=== PATIENT | female | born 2000 | race Hispanic/Latino ===

== ENCOUNTER 2018-01-21 01:39 | Outpatient (CLI) | payer OTHER ==
[2018-01-21 01:56] VITALS: BP 110/75
== END 2018-01-21 02:36 | disposition home or self-care (01) ==
LOC: TRG 01:39
PROVIDERS: ATTEND Obstetrics & Gynecology
DX: O47.03 False labor before 37 completed weeks of gestation, third trimester (principal); Z3A.29 29 weeks gestation of pregnancy
CPT/HCPCS: 59025

== ENCOUNTER 2018-02-07 19:40 | Outpatient (CLI) | payer OTHER ==
[2018-02-07 20:55] LABS: Bilirubin,Urine NEG (Negative); Blood,Urine SM (Negative); Color,Urine Yellow (Yellow); Mucus,Urine FEW /HPF; Protein,Urine <15 mg/dL mg/dL (Negative); Urobilinogen,Urine < 2.0 mg/dL (<2.0)
[2018-02-07] MEDS ORDERED: LACTATED RINGERS 1,000 ML IV ONE (22:08)
[2018-02-07] MEDS ORDERED: TYLENOL PO ONE (22:51)
== END 2018-02-08 00:04 | disposition home or self-care (01) ==
LOC: TRG 19:40
PROVIDERS: ATTEND Obstetrics & Gynecology
DX: O47.03 False labor before 37 completed weeks of gestation, third trimester (principal); Z3A.32 32 weeks gestation of pregnancy
CPT/HCPCS: 59025; 81001; 96360; J7120

== ENCOUNTER 2018-02-14 10:40 | Outpatient (CLI) | payer OTHER ==
[2018-02-14 10:53] VITALS: BP 132/79
[2018-02-14] MEDS ORDERED: LACTATED RINGERS 2,000 ML ONE (10:58)
[2018-02-14] MEDS ORDERED: LACTATED RINGERS 500 ML IV ONE (11:08)
[2018-02-14 11:43] LABS: Basophils % (Auto) 0.4 % (0.0-1.8); Eosinophils % (Auto) 0.5 % (0.0-4.3); Hematocrit 25.7 % (30.3-42.9); Hemoglobin 8.3 gm/dl (10.1-14.3); Lymphocytes # (Auto) 2.4 K/mm3 (1.2-5.4); Lymphocytes % (Auto) 39.4 % (13.4-35.0); Mean Corpuscular HGB Conc 32 % (30-34); Mean Corpuscular Volume 79 fl (79-97); Monocytes # (Auto) 0.4 K/mm3 (0.0-0.8); Monocytes % (Auto) 7.3 % (0.0-7.3); Platelet Count 208 K/mm3 (140-440); Red Blood Count 3.27 M/mm3 (3.65-5.03); Red Cell Distribution Width 15.1 % (13.2-15.2)
[2018-02-14 11:46] LABS: Mean Corpuscular Hemoglobin 25 pg (28-32)
[2018-02-14 12:06] LABS: Alanine Aminotransferase 43 units/L (7-56); Albumin 3.3 g/dL (3.9-5); BUN/Creatinine Ratio 12; Blood Urea Nitrogen 6 mg/dL (7-17); Calcium 8.2 mg/dL (8.4-10.2); Hemolysis Index 2
--- NOTE | 2018-02-14 12:47 | Ultrasound Report ---
FINAL REPORT EXAM: US OB BPP WO NON-STRESS HISTORY: small for dates TECHNIQUE: Ultrasound examination of the gravid uterus for biophysical profile evaluation of the fetus PRIORS: Ob ultrasound 02/14/2018 FINDINGS: There is a single viable intrauterine with documented cardiac activity. The amniotic fluid volume is normal. heart rate: 129 bpm Amniotic fluid maximum vertical pocket: 5.6 cm position: Cephalic Placental position: Anterior and right lateral, grade 1 Evaluation for biophysical profile yields the following score as reported by technologist from real-time exam: respiratory motion (minimum one episode): 2 Gross body movement (minimum 3 movements): 2 tone (minimum one flexion and extension): 2 Amniotic fluid volume (at least 2 cm pocket in vertical diameter): 2 IMPRESSION: Single viable intrauterine with 8/8 biophysical profile score during the sonographic evaluation
--- NOTE | 2018-02-14 12:55 | Ultrasound Report ---
FINAL REPORT EXAM: US OB FOLLOW UP HISTORY: ptl TECHNIQUE: Ultrasound evaluation of the gravid uterus PRIORS: Biophysical profile 02/14/2018 FINDINGS: There is a single viable intrauterine with documented cardiac activity. Multiple ultrasound measurements are made to determine a composite gestational age. Nonspecific low FL/BPD of 70.7, lower limit of normal 71.6. All other ratios are within normal limits. There is no evidence of placenta previa or abruption. The maternal cervix is obscured by head. The quantity of visualized amniotic fluid appears grossly normal. No sonographic abnormality in the limited visualized portion of the anatomy. Heart rate: 129 beats per minute position: Cephalic Placental position: Anterior and right lateral, grade 1 Amniotic fluid index: 19.1cm Estimated weight: 2704 g Growth percentile by estimated weight: 97 Growth percentile by HC/AC ratio: 51 Ultrasound estimated gestational age: 36 weeks 0 days Ultrasound estimated delivery date: 03/14/2018 LMP estimated gestational age: 33 weeks 1 day LMP estimated delivery date: 04/03/2018 IMPRESSION: Single viable intrauterine with the above parameters Nonspecific low FL/BPD ratio Growth percentile between 51 and 97 %
== END 2018-02-14 13:35 | disposition home or self-care (01) ==
LOC: TRG 10:40
PROVIDERS: ATTEND Obstetrics & Gynecology
DX: O47.03 False labor before 37 completed weeks of gestation, third trimester (principal); Z3A.36 36 weeks gestation of pregnancy
CPT/HCPCS: 36415; 59025; 76816; 76819; 80053; 85025; 96360; 96361; J7120

== ENCOUNTER 2018-02-20 15:30 | Outpatient (CLI) | payer OTHER ==
[2018-02-20 15:48] VITALS: BP 127/88
[2018-02-20] MEDS ORDERED: BENADRYL PO ONE (16:45)
== END 2018-02-20 17:45 | disposition home or self-care (01) ==
LOC: TRG 15:30
PROVIDERS: ATTEND Obstetrics & Gynecology
DX: O47.03 False labor before 37 completed weeks of gestation, third trimester (principal); Z3A.34 34 weeks gestation of pregnancy
CPT/HCPCS: 59025

== ENCOUNTER 2018-02-26 16:13 | Inpatient (IN) | payer BC, OTHER ==
[2018-02-26] MEDS ORDERED: LACTATED RINGERS 1,000 ML IV ONE ×2 (17:13→18:37)
[2018-02-26 18:00] LABS: Bilirubin,Urine SM (Negative); Blood,Urine LG (Negative); Color,Urine Amber (Yellow); Mucus,Urine 2+ /HPF
[2018-02-26 18:01] LABS: RBC,Urine > 182.0 /HPF (0.0-6.0)
[2018-02-26 18:03] LABS: Ictotest,Urine Negative (Negative)
--- NOTE | 2018-02-26 18:40 | History and Physical Report ---
History of Present Illness Date of examination: 02/26/18 Date of admission: 02/26/18 Chief complaint: diarrhea, abdominal pain History of present illness: Pt presents c/o intially having constipation stating she took meds and there after had diarrhea and abdominal cramping. She was noted to have findings on cath ua c/w UTI as well as regular uterine contractions with cx of 1cm as per triage nurse. She denies any vaginal bleeding, LOF or ROM and reports good movement. No fevers no chills. Pt has been treated in triage previously for dehydration. Pt admitted for treatment of uti vs pyelo, iv hydration,and monitoring for contractions vs labor, and steriod treatment. Plan of care d/w pt and family. All questions were addressed and answered. 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 Infection History Hx of STD: none HIV Risk Eval: low risk Hepatitis B Risk Eval: low risk Personal hx. of genital herpes: no Partner hx. of genital herpes: no Rash, Viral, or Febrile illness since last LMP? no Varicella/Chicken Pox Status: Unknown TB Risk: no Genetic History Congenital Heart Defect: Mom: no Dad: no Osvaldo Disease: Mom: no Dad: no Thalassemia Mom: no Dad: no Neural Tube Defect Mom: no Dad: no Down's Syndrome Mom: no Dad: no Steve-Sachs Mom: no Dad: no Sickle Cell Disease/Trait Mom: no Dad: no Hemophilia Mom: no Dad: no Muscular Dystrophy Mom: no Dad: no Cystic Fibrosis Mom: no Dad: no Pierre Chorea Mom: no Dad: no Mental Retardation Mom: no Dad: no Fragile X Mom: no Dad: no Other Genetic/Chromosomal Disorder Mom: no Dad: no Child w/other defect Mom: no Dad: no Enviromental Exposures Xray Exposure: no Medication, drug, or alcohol use since LMP: no Chemical/Other Exposure: no Exposure to Cat Liter: no Hx of Parvovirus (Fifth Disease): no Occupational Exposure to Children: none Active Medications (reviewed today): VITAMINS TABS ( VIT-FE FUMARATE-FA TABS) 1 tab po qday Current Allergies (reviewed today): No known allergies Laboratory Results Urine HCG: positive Review of Systems General Denies fever, chills, sweats, anorexia, fatigue, weakness, malaise, weight loss and sleep disorder. Denies nausea, vomiting, headache, swelling of legs, abdominal pain, vaginal discharge, vaginal bleeding and contractions. Denies vaginal discharge, incontinence, dysuria, hematuria, urinary frequency, amenorrhea, menorrhagia, abnormal vaginal bleeding, pelvic pain, genital sores, decreased libido, painful periods, painful sex, urinary urgency, hot flashes, vaginal dryness, vaginal itching and vaginal odor. CV Denies chest pains, palpitations, syncope, dyspnea on exertion, orthopnea, PND and peripheral edema. Resp Denies cough, dyspnea at rest, excessive sputum, hemoptysis, wheezing and pleurisy. GI Denies nausea, vomiting, diarrhea, constipation, change in bowel habits, abdominal pain, melena, hematochezia, jaundice, gas/bloating, indigestion/ heartburn, dysphagia and odynophagia. Endo Denies cold intolerance, heat intolerance, polydipsia, polyphagia, polyuria and unusual weight change. Breast Denies left breast lump, right breast lump, nipple discharge, bloody discharge from nipple, breast pain, abnormal mammogram and breast enlargement. MS Denies back pain, joint pain, joint swelling, muscle cramps, muscle weakness, stiffness, arthritis, sciatica, restless legs, leg pain at night and leg pain with exertion. Derm Denies rash, itching, dryness and suspicious lesions. Neuro Denies paralysis, paresthesias, headache, seizures, tremors, vertigo, transient blindness, frequent falls, frequent headaches and difficulty walking. Psych Denies depression, anxiety, irritability and mood swings. Eyes Denies blurring, diplopia, irritation, discharge, vision loss, eye pain and photophobia. ENT Denies earache, ear discharge, tinnitus, decreased hearing, nasal congestion, nosebleeds, sore throat and hoarseness. Allergy Denies urticaria, allergic rash, hay fever and recurrent infections. Heme Denies abnormal bruising, bleeding and enlarged lymph nodes. Family History Summary: Mother (biol.) - Has Family History of Hypertension - Entered On: 11/30/2017 Father (biol.) - Has Family History of Hypertension - Entered On: 11/30/2017 Father (biol.) - Has Family History of Diabetes - Entered On: 11/30/2017 General Comments - FH: MGM COPD Social History: Patient is single Smoking History: Patient is a former smoker. Risk Factors: Smoked Tobacco Use: Former smoker Cigarettes: Yes Drug use: yes Substance: marijuana Comments: high school HIV high-risk behavior: low risk Caffeine use: 0 drinks per day Alcohol use: yes Comments: stopped 2 months ago Seatbelt use: preg-school guidance counselor % Past History Past Medical History: no pertinent history Past Surgical History: no surgical history STOCK OR DELIVERY CLERK History: other (negative) Family/Genetic History: other (COPD-GM) Social history: no significant social history, single - Obstetrical History Expected Date of Delivery: 04/03/18 Actual Gestation: 34 Week(s) 6 Day(s) : 1 Medications and Allergies Allergies Allergy/AdvReac Type Severity Reaction Status Date / Time No Known Allergies Allergy Verified 02/26/18 17:12 Home Medications Medication Instructions Recorded Confirmed Last Taken Type Docusate Sodium [Colace] 100 mg PO BID PRN #60 capsule 02/14/18 Unknown Rx Ferrous Sulfate [Feosol 325 MG tab] 325 mg PO BID #60 tablet 02/14/18 Unknown Rx Review of Systems All systems: negative - Vital Signs Vital signs: Vital Signs Pulse BP 111 H 129/83 02/26/18 16:43 02/26/18 16:43 Temp Pulse Resp BP Pulse Ox 98.4 F 97 H 18 130/85 98 02/26/18 17:04 02/26/18 18:32 02/26/18 17:04 02/26/18 18:17 02/26/18 18:32 - Physical Exam Cardiovascular: Normal S1, Normal S2 Lungs: Positive: Clear to auscultation, Normal air movement Abdomen: Positive: normal appearance, soft, normal bowel sounds, other (+ left CVA tenderness). Negative: distention, tenderness, guarding Genitourinary (Female): Positive: normal external genitalia, normal perenium Vagina: Positive: normal moisture Extremities: Positive: normal. Negative: tenderness, edema - Obstetrical FHR: category 1 Results Abnormal lab results 02/26/18 Range/Units 17:40 Urine WBC (Auto) 7.0 H (0.0-6.0) /HPF All other labs normal. Assessment and Plan - Patient Problems (1) 34 weeks gestation of Current Visit: Yes Status: Acute (2) UTI (urinary tract infection) Current Visit: Yes Status: Acute Qualifiers: Urinary tract infection type: acute cystitis Plan to address problem: -VS PYEOLO- IV ANTIBX FOR 24 TO 48HRS. PYELO LIKELY WITH THE CVA TENDERNESS -OBSERVATION -IV HYDRATION (3) uterine contractions in third trimester, antepartum Current Visit: Yes Status: Acute Plan to address problem: -PT IS 1CM SO WILL MONITOR AT THIS TIME. NO CERVICAL CHANGE SO NO MAGNESIUM AT THIS TIME. - STEROID -CLOSE OBSERVATIONS. CONTRACTIONS LIKELY DUE TO UTI VS PYELO
[2018-02-26] MEDS ORDERED: COLACE PO PRN (18:41)
[2018-02-26] MEDS ORDERED: TYLENOL PO PRN (18:41)
[2018-02-26] MEDS ORDERED: SUBLIMAZE IV ONE (18:42)
[2018-02-26] MEDS ORDERED: ROCEPHIN IM SCH (19:00)
[2018-02-26] MEDS: CELESTONE SOLUSPAN IM SCH (19:03)
[2018-02-26] MEDS ORDERED: XYLOCAINE 1% MPF 5 mL INFILTRATI ONE (20:00)
[2018-02-26 20:12] LABS: Alanine Aminotransferase 267 units/L (7-56); Albumin 3.3 g/dL (3.9-5); BUN/Creatinine Ratio 11; Blood Urea Nitrogen 9 mg/dL (7-17); Calcium 9.1 mg/dL (8.4-10.2); Hemolysis Index 39
[2018-02-26 20:28] LABS: Basophils % (Auto) 0.1 % (0.0-1.8); Hematocrit 26.7 % (30.3-42.9); Hemoglobin 8.4 gm/dl (10.1-14.3); Lymphocytes # (Auto) 1.2 K/mm3 (1.2-5.4); Lymphocytes % (Auto) 8.8 % (13.4-35.0); Mean Corpuscular HGB Conc 31 % (30-34); Mean Corpuscular Volume 78 fl (79-97); Monocytes # (Auto) 0.8 K/mm3 (0.0-0.8); Monocytes % (Auto) 5.7 % (0.0-7.3); Platelet Count 194 K/mm3 (140-440); Red Blood Count 3.44 M/mm3 (3.65-5.03); Red Cell Distribution Width 16.1 % (13.2-15.2)
[2018-02-26 20:31] LABS: Mean Corpuscular Hemoglobin 24 pg (28-32)
[2018-02-26] MEDS: LACTATED RINGERS 1,000 ML IV SCH (20:41)
[2018-02-26] MEDS ORDERED: NACL 0.9% 100 ML ONE (20:50)
[2018-02-26] MEDS ORDERED: ROCEPHIN/NS 1 GM/50 ML 1 GM/50 ML BAG IV SCH (21:00)
[2018-02-26] MEDS: PEPCID IV SCH (21:04)
[2018-02-26] MEDS: STADOL IV PRN (21:05)
--- NOTE | 2018-02-26 21:06 | Event Note ---
Date: 02/26/18 Pt with elevated liver enzymes. BPs are normal at this time. Will obtain 24hr urine collection and consult amfm in the am to see pt as she is stable at this time. ? cholestaiss but pt has no c/o of purities just diarrhea after taking the colace. She c/o reflux but no n/v and has normal appetite. Will cont to closely monitor and repeat LFTS in the am. Will also obtain an amylase and lipase at this time.
[2018-02-26] MEDS: cefTRIAXone 1 GM in NACL 0.9% 20 ML IV SCH (22:10)
[2018-02-26 22:13] LABS: Lipase 15 units/L (13-60)
--- NOTE | 2018-02-27 07:44 | Progress Note ---
Assessment and Plan - Patient Problems (1) 34 weeks gestation of Current Visit: Yes Status: Acute (2) Transaminitis Current Visit: Yes Status: Acute Plan to address problem: ? atypical presentation for preeclampsia Repeat CMP Continue 24h urine, will place vann to accurately collect urine (3) uterine contractions in third trimester, antepartum Current Visit: Yes Status: Acute Plan to address problem: Irregular contractions Complete steroids will hold mgSO 4 for now since on evidence of imminent delivery (4) UTI (urinary tract infection) Current Visit: Yes Status: Acute Qualifiers: Urinary tract infection type: acute cystitis Plan to address problem: Continue Rocephin Urine culture pending Subjective - Subjective Date of service: 02/27/18 Principal diagnosis: IUP@34 weeks, transamnitis, pyleonephritis Interval history: Ambulating in room, feel better wants to know when she can eat Patient reports: vaginal bleeding, movement normal, contractions, no new complaints Objective - Vital Signs Vital Signs: Vital Signs - 12hr 02/26/18 02/26/18 02/26/18 20:02 20:31 21:01 Temperature Pulse Rate 88 86 97 H Respiratory Rate Blood Pressure 133/83 137/86 127/84 Blood Pressure [Left] O2 Sat by Pulse Oximetry 02/26/18 02/26/18 02/26/18 21:05 21:31 22:28 Temperature Pulse Rate 107 H 111 H Respiratory 20 Rate Blood Pressure 112/75 116/80 Blood Pressure [Left] O2 Sat by Pulse Oximetry 02/26/18 02/26/18 02/26/18 22:31 23:02 23:33 Temperature Pulse Rate 110 H 115 H 99 H Respiratory Rate Blood Pressure 119/71 120/79 117/71 Blood Pressure [Left] O2 Sat by Pulse Oximetry 02/27/18 02/27/18 02/27/18 00:01 00:31 00:41 Temperature 98.4 F Pulse Rate 98 H 114 H 101 H Respiratory 20 Rate Blood Pressure 122/77 113/69 117/73 Blood Pressure 117/73 [Left] O2 Sat by Pulse Oximetry 02/27/18 02/27/18 02/27/18 01:01 01:31 02:01 Temperature Pulse Rate 98 H 94 H 102 H Respiratory Rate Blood Pressure 128/74 116/75 119/74 Blood Pressure [Left] O2 Sat by Pulse Oximetry 02/27/18 02/27/18 02/27/18 02:31 03:01 03:32 Temperature Pulse Rate 110 H 99 H 113 H Respiratory Rate Blood Pressure 126/82 141/80 130/81 Blood Pressure [Left] O2 Sat by Pulse Oximetry 02/27/18 02/27/18 02/27/18 04:01 04:30 04:32 Temperature 99.5 F Pulse Rate 90 121 H 106 H Respiratory 20 Rate Blood Pressure 122/82 129/78 Blood Pressure 120/74 [Left] O2 Sat by Pulse Oximetry 02/27/18 02/27/18 02/27/18 04:49 05:01 05:31 Temperature Pulse Rate 121 H 105 H 122 H Respiratory Rate Blood Pressure 120/74 118/71 122/59 Blood Pressure [Left] O2 Sat by Pulse Oximetry 02/27/18 02/27/18 02/27/18 06:01 06:31 07:01 Temperature Pulse Rate 118 H 104 H 91 H Respiratory Rate Blood Pressure 117/66 120/72 117/72 Blood Pressure [Left] O2 Sat by Pulse Oximetry 02/27/18 02/27/18 02/27/18 07:18 07:23 07:25 Temperature 98.2 F Pulse Rate 96 H 106 H 96 H Respiratory 18 Rate Blood Pressure 125/78 Blood Pressure 125/78 [Left] O2 Sat by Pulse 98 99 Oximetry 02/27/18 02/27/18 02/27/18 07:28 07:31 07:33 Temperature Pulse Rate 101 H 105 H 103 H Respiratory Rate Blood Pressure 126/80 Blood Pressure [Left] O2 Sat by Pulse 99 98 Oximetry - Exam Breasts: deferred Cardiovascular: Regular rate Lungs: Clear to auscultation Abdomen: Present: normal appearance, soft. Absent: tenderness Uterus: Absent: tenderness FHR: category 1 Uterine Contraction Monitor Mode: External Uterine Contraction Pattern: Irregular Extremities: edema (1+) Deep Tendon Reflex Grade: Normal but brisk +3 - Labs Labs: Abnormal Labs 02/26/18 02/26/18 02/26/18 17:40 19:24 20:15 WBC 13.9 H RBC 3.44 L Hgb 8.4 L Hct 26.7 L MCV 78 L MCH 24 L RDW 16.1 H Lymph % (Auto) 8.8 L Seg Neutrophils % 85.4 H Seg Neutrophils # 11.9 H Sodium 132 L Chloride 97.1 L Carbon Dioxide 15 L AST 355 H ALT 267 H Alkaline Phosphatase 192 H Albumin 3.3 L Amylase Urine WBC (Auto) 7.0 H Acetaminophen 02/26/18 02/26/18 21:29 21:45 WBC RBC Hgb Hct MCV MCH RDW Lymph % (Auto) Seg Neutrophils % Seg Neutrophils # Sodium Chloride Carbon Dioxide AST ALT Alkaline Phosphatase Albumin Amylase 23 L Urine WBC (Auto) Acetaminophen < 5.0 L Laboratory Results - last 24 hr 02/26/18 02/26/18 02/26/18 17:40 19:24 20:15 WBC 13.9 H RBC 3.44 L Hgb 8.4 L Hct 26.7 L MCV 78 L MCH 24 L MCHC 31 RDW 16.1 H Plt Count 194 Lymph % (Auto) 8.8 L Blount % (Auto) 5.7 Eos % (Auto) 0.0 Baso % (Auto) 0.1 Lymph # 1.2 Blount # 0.8 Eos # 0.0 Baso # 0.0 Seg Neutrophils % 85.4 H Seg Neutrophils # 11.9 H Sodium 132 L Potassium 4.4 Chloride 97.1 L Carbon Dioxide 15 L Anion Gap 24 BUN 9 Creatinine 0.8 Estimated GFR > 60 BUN/Creatinine Ratio 11 Glucose 71 Calcium 9.1 Total Bilirubin 0.80 AST 355 H ALT 267 H Alkaline Phosphatase 192 H Total Protein 6.5 Albumin 3.3 L Albumin/Globulin Ratio 1.0 Amylase Lipase Urine Color Smiley Urine Turbidity Clear Urine pH 5.0 Ur Specific [place] 1.023 Urine Protein 100 mg/dl Urine Glucose (UA) Neg Urine Ketones 20 Urine Blood Lg Urine Nitrite Neg Urine Bilirubin Sm Urine Ictotest Negative Urine Urobilinogen 4.0 Ur Leukocyte Esterase Neg Urine WBC (Auto) 7.0 H Urine RBC (Auto) > 182.0 U Epithel Cells (Auto) 2.0 Urine Mucus 2+ Acetaminophen 02/26/18 02/26/18 21:29 21:45 WBC RBC Hgb Hct MCV MCH MCHC RDW Plt Count Lymph % (Auto) Blount % (Auto) Eos % (Auto) Baso % (Auto) Lymph # Blount # Eos # Baso # Seg Neutrophils % Seg Neutrophils # Sodium Potassium Chloride Carbon Dioxide Anion Gap BUN Creatinine Estimated GFR BUN/Creatinine Ratio Glucose Calcium Total Bilirubin AST ALT Alkaline Phosphatase Total Protein Albumin Albumin/Globulin Ratio Amylase 23 L Lipase 15 Urine Color Urine Turbidity Urine pH Ur Specific [place] Urine Protein Urine Glucose (UA) Urine Ketones Urine Blood Urine Nitrite Urine Bilirubin Urine Ictotest Urine Urobilinogen Ur Leukocyte Esterase Urine WBC (Auto) Urine RBC (Auto) U Epithel Cells (Auto) Urine Mucus Acetaminophen < 5.0 L
[2018-02-27] MEDS: STADOL IV PRN ×2 (08:10→12:19)
[2018-02-27] MEDS: ZOFRAN IV PRN (08:13)
[2018-02-27] MEDS: PEPCID IV SCH (09:43)
[2018-02-27] MEDS: PRENATAL VITAMIN PO SCH (09:43)
[2018-02-27 10:48] LABS: Alanine Aminotransferase 239 units/L (7-56); Albumin 2.9 g/dL (3.9-5); BUN/Creatinine Ratio 12; Blood Urea Nitrogen 11 mg/dL (7-17); Calcium 8.3 mg/dL (8.4-10.2); Hemolysis Index 7
[2018-02-27 11:39] LABS: Hepatitis A Antibody IgM Non-Reactive (NonReactive); Hepatitis B Core IgM Non-Reactive (NonReactive); Hepatitis B Surface Antigen Non-Reactive (Negative); Hepatitis C Virus Antibody Non-Reactive (NonReactive)
[2018-02-27] MEDS: LACTATED RINGERS 1,000 ML IV SCH (12:26)
[2018-02-27 18:10] LABS: Amphetamine Screen,Urine PRESUMPTIVE NEGATIVE; Benzodiazepines Screen,Urine PRESUMPTIVE NEGATIVE; Cannabinoid Screen,Urine PRESUMPTIVE NEGATIVE; Cocaine Screen,Urine PRESUMPTIVE NEGATIVE; Methadone Screen,Urine PRESUMPTIVE NEGATIVE; Opiate Screen,Urine PRESUMPTIVE NEGATIVE
[2018-02-27] MEDS: CELESTONE SOLUSPAN IM SCH (19:23)
[2018-02-27] MEDS ORDERED: CELESTONE SOLUSPAN IM NR (19:30)
[2018-02-27] MEDS ORDERED: NACL 0.9% 250ML 250 ML ONE (23:45)
[2018-02-27] MEDS: cefTRIAXone 1 GM in NACL 0.9% 20 ML IV SCH (23:45)
[2018-02-28] MEDS: LACTATED RINGERS 1,000 ML IV SCH ×3 (00:22→21:55)
[2018-02-28] MEDS ORDERED: TYLENOL PO ONE (00:56)
[2018-02-28] MEDS: AMBIEN PO PRN ×2 (01:14→21:55)
[2018-02-28] MEDS: MYLICON PO PRN ×2 (06:26→18:27)
--- NOTE | 2018-02-28 07:42 | Progress Note ---
Assessment and Plan Pt A&O X 3 No c/o voiced VSS FHR Category 1 US BPP, TAMIKA, and EFW ordered for this AM. BP normotensive. No abdominal tenderness not CVAT noted. Labs ordered and drawn. aware of pt. Continue POC as ordered. Subjective - Subjective Date of service: 02/28/18 (pt w/o complaint this AM; ongoing 24hr urine) Principal diagnosis: IUP@34 w 1d, transamnitis, pyleonephritis Patient reports: vaginal bleeding, movement normal, contractions, no new complaints Objective - Vital Signs Vital Signs: Vital Signs - 12hr 02/27/18 02/27/18 02/27/18 19:41 19:46 19:49 Temperature Pulse Rate 97 H 97 H 95 H Respiratory Rate Blood Pressure 123/76 O2 Sat by Pulse 98 98 Oximetry 02/27/18 02/27/18 02/27/18 19:51 19:56 20:01 Temperature Pulse Rate 99 H 101 H 95 H Respiratory Rate Blood Pressure O2 Sat by Pulse 98 97 97 Oximetry 02/27/18 02/27/18 02/27/18 20:06 20:11 20:16 Temperature Pulse Rate 95 H 97 H 101 H Respiratory Rate Blood Pressure O2 Sat by Pulse 97 97 97 Oximetry 02/27/18 02/27/18 02/27/18 20:21 20:26 20:31 Temperature Pulse Rate 110 H 93 H 119 H Respiratory Rate Blood Pressure O2 Sat by Pulse 98 97 97 Oximetry 02/27/18 02/27/18 02/27/18 20:36 20:41 20:46 Temperature Pulse Rate 109 H 105 H 94 H Respiratory Rate Blood Pressure O2 Sat by Pulse 97 98 99 Oximetry 02/27/18 02/27/18 02/27/18 20:49 20:51 20:56 Temperature Pulse Rate 102 H 100 H 100 H Respiratory Rate Blood Pressure 123/80 O2 Sat by Pulse 99 98 Oximetry 02/27/18 02/27/18 02/27/18 21:01 21:06 21:11 Temperature Pulse Rate 99 H 116 H 96 H Respiratory Rate Blood Pressure O2 Sat by Pulse 97 97 98 Oximetry 02/27/18 02/27/18 02/27/18 21:16 21:26 21:40 Temperature Pulse Rate 94 H 52 L Respiratory Rate Blood Pressure O2 Sat by Pulse 99 77 L 69 L Oximetry 02/27/18 02/27/18 02/27/18 21:41 21:46 21:49 Temperature Pulse Rate 104 H 92 H 94 H Respiratory Rate Blood Pressure 128/78 O2 Sat by Pulse 100 98 Oximetry 02/27/18 02/27/18 02/27/18 21:51 21:56 22:01 Temperature Pulse Rate 91 H 83 107 H Respiratory Rate Blood Pressure O2 Sat by Pulse 98 98 98 Oximetry 02/27/18 02/27/18 02/27/18 22:06 22:11 22:16 Temperature Pulse Rate 94 H 99 H 99 H Respiratory Rate Blood Pressure O2 Sat by Pulse 98 98 98 Oximetry 02/27/18 02/27/18 02/27/18 22:21 22:25 22:26 Temperature Pulse Rate 101 H 109 H 109 H Respiratory Rate Blood Pressure O2 Sat by Pulse 99 86 86 Oximetry 02/27/18 02/27/18 02/27/18 22:31 22:36 22:41 Temperature Pulse Rate 100 H 105 H 100 H Respiratory Rate Blood Pressure O2 Sat by Pulse 99 98 98 Oximetry 02/27/18 02/27/18 02/27/18 22:46 22:49 22:51 Temperature Pulse Rate 101 H 101 H 98 H Respiratory Rate Blood Pressure 117/76 O2 Sat by Pulse 98 98 Oximetry 02/27/18 02/27/18 02/27/18 23:03 23:08 23:13 Temperature Pulse Rate 88 89 Respiratory Rate Blood Pressure O2 Sat by Pulse 94 100 98 Oximetry 02/27/18 02/27/18 02/27/18 23:18 23:23 23:28 Temperature Pulse Rate 93 H 95 H 86 Respiratory Rate Blood Pressure O2 Sat by Pulse 97 98 98 Oximetry 02/27/18 02/27/18 02/27/18 23:33 23:38 23:43 Temperature Pulse Rate 80 102 H 97 H Respiratory Rate Blood Pressure O2 Sat by Pulse 98 98 98 Oximetry 02/27/18 02/27/18 02/27/18 23:48 23:49 23:53 Temperature Pulse Rate 101 H 110 H 104 H Respiratory Rate Blood Pressure 118/75 O2 Sat by Pulse 98 100 Oximetry 02/27/18 02/28/18 02/28/18 23:58 00:03 00:08 Temperature Pulse Rate 107 H 102 H 112 H Respiratory Rate Blood Pressure O2 Sat by Pulse 99 100 100 Oximetry 02/28/18 02/28/18 02/28/18 00:10 00:13 00:18 Temperature 96.5 F L Pulse Rate 107 H 102 H Respiratory 20 Rate Blood Pressure O2 Sat by Pulse 100 99 Oximetry 02/28/18 02/28/18 02/28/18 00:23 00:28 00:33 Temperature Pulse Rate 105 H 103 H 111 H Respiratory Rate Blood Pressure O2 Sat by Pulse 100 100 100 Oximetry 02/28/18 02/28/18 02/28/18 00:38 00:43 00:48 Temperature Pulse Rate 117 H 100 H 111 H Respiratory Rate Blood Pressure O2 Sat by Pulse 100 100 100 Oximetry 02/28/18 02/28/18 02/28/18 00:49 00:53 00:58 Temperature Pulse Rate 108 H 105 H 112 H Respiratory Rate Blood Pressure 132/85 O2 Sat by Pulse 100 99 Oximetry 02/28/18 02/28/18 02/28/18 01:03 01:04 01:10 Temperature Pulse Rate 113 H 103 H 34 L Respiratory Rate Blood Pressure O2 Sat by Pulse 100 90 0 L Oximetry 02/28/18 02/28/18 02/28/18 01:11 01:16 01:21 Temperature Pulse Rate 110 H 107 H 96 H Respiratory Rate Blood Pressure O2 Sat by Pulse 100 98 98 Oximetry 02/28/18 02/28/18 02/28/18 01:26 01:31 01:36 Temperature Pulse Rate 102 H 102 H 93 H Respiratory Rate Blood Pressure O2 Sat by Pulse 98 100 98 Oximetry 02/28/18 02/28/18 02/28/18 01:41 01:46 01:49 Temperature Pulse Rate 106 H 96 H 96 H Respiratory Rate Blood Pressure 129/80 O2 Sat by Pulse 100 100 Oximetry 02/28/18 02/28/18 02/28/18 01:51 01:56 02:01 Temperature Pulse Rate 94 H 92 H 91 H Respiratory Rate Blood Pressure O2 Sat by Pulse 100 100 100 Oximetry 02/28/18 02/28/18 02/28/18 02:17 02:22 02:27 Temperature Pulse Rate 95 H 95 H 118 H Respiratory Rate Blood Pressure O2 Sat by Pulse 99 98 98 Oximetry 02/28/18 02/28/18 02/28/18 02:30 02:33 02:40 Temperature Pulse Rate 73 63 Respiratory Rate Blood Pressure O2 Sat by Pulse 77 L 83 L 0 L Oximetry 02/28/18 02/28/18 02/28/18 02:44 02:49 02:57 Temperature Pulse Rate 106 H 120 H Respiratory Rate Blood Pressure 138/87 O2 Sat by Pulse 98 88 Oximetry 02/28/18 02/28/18 02/28/18 02:58 03:03 03:08 Temperature Pulse Rate 102 H 94 H 92 H Respiratory Rate Blood Pressure O2 Sat by Pulse 100 100 99 Oximetry 02/28/18 02/28/18 02/28/18 03:13 03:18 03:23 Temperature Pulse Rate 92 H 98 H 101 H Respiratory Rate Blood Pressure O2 Sat by Pulse 99 99 97 Oximetry 02/28/18 02/28/18 02/28/18 03:28 03:33 03:38 Temperature Pulse Rate 92 H 99 H 102 H Respiratory Rate Blood Pressure O2 Sat by Pulse 97 97 97 Oximetry 02/28/18 02/28/18 02/28/18 03:43 03:48 03:49 Temperature Pulse Rate 94 H 96 H 100 H Respiratory Rate Blood Pressure 114/63 O2 Sat by Pulse 97 96 Oximetry 02/28/18 02/28/18 02/28/18 03:53 03:58 04:03 Temperature Pulse Rate 96 H 96 H 95 H Respiratory Rate Blood Pressure O2 Sat by Pulse 96 96 96 Oximetry 02/28/18 02/28/18 02/28/18 04:08 04:13 04:18 Temperature Pulse Rate 135 H 119 H 124 H Respiratory Rate Blood Pressure O2 Sat by Pulse 99 100 100 Oximetry 02/28/18 02/28/18 02/28/18 04:23 04:28 04:33 Temperature Pulse Rate 129 H 136 H 142 H Respiratory Rate Blood Pressure O2 Sat by Pulse 100 100 100 Oximetry 02/28/18 02/28/18 02/28/18 04:38 04:43 04:48 Temperature Pulse Rate 105 H 99 H 109 H Respiratory Rate Blood Pressure O2 Sat by Pulse 100 100 100 Oximetry 02/28/18 02/28/18 02/28/18 04:49 04:53 04:58 Temperature Pulse Rate 105 H 116 H 99 H Respiratory Rate Blood Pressure 137/87 O2 Sat by Pulse 100 100 Oximetry 02/28/18 02/28/18 02/28/18 05:03 05:08 05:13 Temperature Pulse Rate 119 H 102 H 127 H Respiratory Rate Blood Pressure O2 Sat by Pulse 100 100 100 Oximetry 02/28/18 02/28/18 02/28/18 05:18 05:23 05:28 Temperature Pulse Rate 129 H 110 H 111 H Respiratory Rate Blood Pressure O2 Sat by Pulse 100 100 100 Oximetry 02/28/18 02/28/18 02/28/18 05:33 05:35 05:45 Temperature Pulse Rate 119 H 80 Respiratory Rate Blood Pressure O2 Sat by Pulse 100 74 L 0 L Oximetry 02/28/18 02/28/18 02/28/18 05:46 05:50 05:51 Temperature Pulse Rate 158 H 123 H 142 H Respiratory Rate Blood Pressure 129/74 O2 Sat by Pulse 99 100 Oximetry 02/28/18 02/28/18 02/28/18 05:56 06:01 06:06 Temperature Pulse Rate 121 H 124 H 113 H Respiratory Rate Blood Pressure O2 Sat by Pulse 98 99 97 Oximetry 02/28/18 02/28/18 02/28/18 06:11 06:16 06:21 Temperature Pulse Rate 124 H 119 H 136 H Respiratory Rate Blood Pressure O2 Sat by Pulse 99 99 100 Oximetry 02/28/18 02/28/18 02/28/18 06:26 06:31 06:36 Temperature Pulse Rate 135 H 123 H 111 H Respiratory Rate Blood Pressure O2 Sat by Pulse 99 99 100 Oximetry 02/28/18 02/28/18 02/28/18 06:41 06:46 06:49 Temperature Pulse Rate 111 H 129 H 120 H Respiratory Rate Blood Pressure 134/89 O2 Sat by Pulse 100 100 Oximetry 02/28/18 02/28/18 02/28/18 06:51 06:56 07:01 Temperature Pulse Rate 129 H 111 H 129 H Respiratory Rate Blood Pressure O2 Sat by Pulse 100 100 100 Oximetry 02/28/18 02/28/18 02/28/18 07:06 07:11 07:16 Temperature Pulse Rate 130 H 121 H 118 H Respiratory Rate Blood Pressure O2 Sat by Pulse 100 100 100 Oximetry 02/28/18 02/28/18 02/28/18 07:21 07:25 07:38 Temperature Pulse Rate 133 H 78 94 H Respiratory Rate Blood Pressure O2 Sat by Pulse 98 77 L 0 L Oximetry 02/28/18 07:39 Temperature Pulse Rate 141 H Respiratory Rate Blood Pressure O2 Sat by Pulse 100 Oximetry - Exam Breasts: deferred Cardiovascular: Regular rate Lungs: Clear to auscultation, Normal air movement Abdomen: Present: normal appearance, soft. Absent: distention, tenderness Vulva: both: normal Uterus: Present: normal FHR: auscultation normal, category 1 Uterine Contraction Monitor Mode: External Uterine Contraction Pattern: Absent Uterine Tone Measurement Phase: Resting Extremities: normal Deep Tendon Reflex Grade: Normal but brisk +3 - Labs Labs: Abnormal Labs 02/26/18 02/26/18 02/26/18 17:40 19:24 20:15 WBC 13.9 H RBC 3.44 L Hgb 8.4 L Hct 26.7 L MCV 78 L MCH 24 L RDW 16.1 H Lymph % (Auto) 8.8 L Seg Neutrophils % 85.4 H Seg Neutrophils # 11.9 H Sodium 132 L Chloride 97.1 L Carbon Dioxide 15 L Calcium AST 355 H ALT 267 H Alkaline Phosphatase 192 H Total Protein Albumin 3.3 L Amylase Urine WBC (Auto) 7.0 H Ur Total Protein 24 Hr Urine Total Protein Acetaminophen 02/26/18 02/26/18 02/27/18 21:29 21:45 09:30 WBC RBC Hgb Hct MCV MCH RDW Lymph % (Auto) Seg Neutrophils % Seg Neutrophils # Sodium 136 L Chloride Carbon Dioxide 17 L Calcium 8.3 L AST 294 H ALT 239 H Alkaline Phosphatase 172 H Total Protein 6.0 L Albumin 2.9 L Amylase 23 L Urine WBC (Auto) Ur Total Protein 24 Hr Urine Total Protein Acetaminophen < 5.0 L 02/27/18 21:00 WBC RBC Hgb Hct MCV MCH RDW Lymph % (Auto) Seg Neutrophils % Seg Neutrophils # Sodium Chloride Carbon Dioxide Calcium AST ALT Alkaline Phosphatase Total Protein Albumin Amylase Urine WBC (Auto) Ur Total Protein 24 Hr 324.50 H Urine Total Protein 59 H Acetaminophen Laboratory Results - last 24 hr 02/27/18 02/27/18 02/27/18 09:30 09:30 17:40 Sodium 136 L Potassium 4.0 Chloride 100.8 Carbon Dioxide 17 L Anion Gap 22 BUN 11 Creatinine 0.9 Estimated GFR > 60 BUN/Creatinine Ratio 12 Glucose 100 Calcium 8.3 L Total Bilirubin 0.70 AST 294 H ALT 239 H Alkaline Phosphatase 172 H Total Protein 6.0 L Albumin 2.9 L Albumin/Globulin Ratio 0.9 Urine Total Volume Ur Total Protein 24 Hr Urine Total Protein Urine Opiates Screen Presumptive negative Urine Methadone Screen Presumptive negative Ur Barbiturates Screen Presumptive negative Ur Phencyclidine Scrn Presumptive negative Ur Amphetamines Screen Presumptive negative U Benzodiazepines Scrn Presumptive negative Urine Cocaine Screen Presumptive negative U Marijuana (THC) Screen Presumptive negative Drugs of Abuse Note Disclamer Hepatitis A IgM Ab Non-reactive Hep Bs Antigen Non-reactive Hep B Core IgM Ab Non-reactive Hepatitis C Antibody Non-reactive 02/27/18 21:00 Sodium Potassium Chloride Carbon Dioxide Anion Gap BUN Creatinine Estimated GFR BUN/Creatinine Ratio Glucose Calcium Total Bilirubin AST ALT Alkaline Phosphatase Total Protein Albumin Albumin/Globulin Ratio Urine Total Volume 550 Ur Total Protein 24 Hr 324.50 H Urine Total Protein 59 H Urine Opiates Screen Urine Methadone Screen Ur Barbiturates Screen Ur Phencyclidine Scrn Ur Amphetamines Screen U Benzodiazepines Scrn Urine Cocaine Screen U Marijuana (THC) Screen Drugs of Abuse Note Hepatitis A IgM Ab Hep Bs Antigen Hep B Core IgM Ab Hepatitis C Antibody
[2018-02-28] MEDS: TYLENOL PO PRN (08:06)
[2018-02-28] MEDS: PEPCID IV SCH (10:09)
--- NOTE | 2018-02-28 10:29 | XRay Report ---
AP CHEST: HISTORY: Tachycardia AP view of the chest demonstrates a normal mediastinal and cardiac contour with clear lungs and normal bony and soft tissue structures. IMPRESSION: Unremarkable AP chest.
[2018-02-28 10:41] LABS: Albumin 2.8 g/dL (3.9-5); BUN/Creatinine Ratio 16; Blood Urea Nitrogen 13 mg/dL (7-17); Calcium 7.9 mg/dL (8.4-10.2); Hemolysis Index 102
[2018-02-28 10:54] LABS: Alanine Aminotransferase 312 units/L (7-56)
[2018-02-28] MEDS: PRENATAL VITAMIN PO SCH (10:55)
--- NOTE | 2018-02-28 11:05 | Ultrasound Report ---
ULTRASOUND BIOPHYSICAL PROFILE: History: Pyelonephritis Technique: Transabdominal ultrasound with Doppler interrogation. 2 - breathing movements 2 - movements 2 - posture and tone 2 - Qualitative amniotic fluid volume 8 - TOTAL SCORE OF POSSIBLE 8 Heart Rate (bpm) 152
[2018-02-28 11:59] LABS: Hematocrit 23.7 % (30.3-42.9); Hemoglobin 7.7 gm/dl (10.1-14.3); Mean Corpuscular HGB Conc 32 % (30-34); Mean Corpuscular Hemoglobin 25 pg (28-32); Mean Corpuscular Volume 77 fl (79-97); Platelet Count 195 K/mm3 (140-440); Red Blood Count 3.08 M/mm3 (3.65-5.03); Red Cell Distribution Width 16.5 % (13.2-15.2)
--- NOTE | 2018-02-28 12:00 | Progress Note ---
Assessment and Plan 1. IUP at 35 1/7 weeks 2. Diarrhea resolved 3. Suspected pyelonephritis - preliminary Urine cx reported as negative 4. Transaminitis - neg Hep serology 5. Gestational proteinuria -with the exception of one elevated BP yesterday , pthas remains normotensive 5. abdominal pain Rec; 1. Continue twice weekly BPP 2. monitor for labor , maternal HTN 3. RUQ US is recommended 4. continue serial labs to follow LFT 5. discontinue IV antibiotic therapy as she remains afebrile transition to oral therapy, follow up on final urine cx .Antibiotics can be discontinued if the final result is negative Subjective - Subjective Date of service: 02/28/18 Principal diagnosis: IUP@35 w 1d Interval history: She reports that the pain is sharp in nature , and moved from her lower abd to LUQ to right flank Denied contractions, bleeding, LOF, diarrhea, N/V, VERGARA visual changes Patient reports: vaginal bleeding, movement normal, contractions, no new complaints Objective - Vital Signs Vital Signs: Vital Signs - 12hr 02/28/18 02/28/18 02/28/18 00:03 00:08 00:10 Temperature 96.5 F L Pulse Rate 102 H 112 H Respiratory 20 Rate Blood Pressure Blood Pressure [Left] O2 Sat by Pulse 100 100 Oximetry 02/28/18 02/28/18 02/28/18 00:13 00:18 00:23 Temperature Pulse Rate 107 H 102 H 105 H Respiratory Rate Blood Pressure Blood Pressure [Left] O2 Sat by Pulse 100 99 100 Oximetry 02/28/18 02/28/18 02/28/18 00:28 00:33 00:38 Temperature Pulse Rate 103 H 111 H 117 H Respiratory Rate Blood Pressure Blood Pressure [Left] O2 Sat by Pulse 100 100 100 Oximetry 02/28/18 02/28/18 02/28/18 00:43 00:48 00:49 Temperature Pulse Rate 100 H 111 H 108 H Respiratory Rate Blood Pressure 132/85 Blood Pressure [Left] O2 Sat by Pulse 100 100 Oximetry 02/28/18 02/28/18 02/28/18 00:53 00:58 01:03 Temperature Pulse Rate 105 H 112 H 113 H Respiratory Rate Blood Pressure Blood Pressure [Left] O2 Sat by Pulse 100 99 100 Oximetry 02/28/18 02/28/18 02/28/18 01:04 01:10 01:11 Temperature Pulse Rate 103 H 34 L 110 H Respiratory Rate Blood Pressure Blood Pressure [Left] O2 Sat by Pulse 90 0 L 100 Oximetry 02/28/18 02/28/18 02/28/18 01:16 01:21 01:26 Temperature Pulse Rate 107 H 96 H 102 H Respiratory Rate Blood Pressure Blood Pressure [Left] O2 Sat by Pulse 98 98 98 Oximetry 02/28/18 02/28/18 02/28/18 01:31 01:36 01:41 Temperature Pulse Rate 102 H 93 H 106 H Respiratory Rate Blood Pressure Blood Pressure [Left] O2 Sat by Pulse 100 98 100 Oximetry 02/28/18 02/28/18 02/28/18 01:46 01:49 01:51 Temperature Pulse Rate 96 H 96 H 94 H Respiratory Rate Blood Pressure 129/80 Blood Pressure [Left] O2 Sat by Pulse 100 100 Oximetry 02/28/18 02/28/18 02/28/18 01:56 02:01 02:17 Temperature Pulse Rate 92 H 91 H 95 H Respiratory Rate Blood Pressure Blood Pressure [Left] O2 Sat by Pulse 100 100 99 Oximetry 02/28/18 02/28/18 02/28/18 02:22 02:27 02:30 Temperature Pulse Rate 95 H 118 H Respiratory Rate Blood Pressure Blood Pressure [Left] O2 Sat by Pulse 98 98 77 L Oximetry 02/28/18 02/28/18 02/28/18 02:33 02:40 02:44 Temperature Pulse Rate 73 63 106 H Respiratory Rate Blood Pressure Blood Pressure [Left] O2 Sat by Pulse 83 L 0 L 98 Oximetry 02/28/18 02/28/18 02/28/18 02:49 02:57 02:58 Temperature Pulse Rate 120 H 102 H Respiratory Rate Blood Pressure 138/87 Blood Pressure [Left] O2 Sat by Pulse 88 100 Oximetry 02/28/18 02/28/18 02/28/18 03:03 03:08 03:13 Temperature Pulse Rate 94 H 92 H 92 H Respiratory Rate Blood Pressure Blood Pressure [Left] O2 Sat by Pulse 100 99 99 Oximetry 02/28/18 02/28/18 02/28/18 03:18 03:23 03:28 Temperature Pulse Rate 98 H 101 H 92 H Respiratory Rate Blood Pressure Blood Pressure [Left] O2 Sat by Pulse 99 97 97 Oximetry 02/28/18 02/28/18 02/28/18 03:33 03:38 03:43 Temperature Pulse Rate 99 H 102 H 94 H Respiratory Rate Blood Pressure Blood Pressure [Left] O2 Sat by Pulse 97 97 97 Oximetry 02/28/18 02/28/18 02/28/18 03:48 03:49 03:53 Temperature Pulse Rate 96 H 100 H 96 H Respiratory Rate Blood Pressure 114/63 Blood Pressure [Left] O2 Sat by Pulse 96 96 Oximetry 02/28/18 02/28/18 02/28/18 03:58 04:03 04:08 Temperature Pulse Rate 96 H 95 H 135 H Respiratory Rate Blood Pressure Blood Pressure [Left] O2 Sat by Pulse 96 96 99 Oximetry 02/28/18 02/28/18 02/28/18 04:13 04:18 04:23 Temperature Pulse Rate 119 H 124 H 129 H Respiratory Rate Blood Pressure Blood Pressure [Left] O2 Sat by Pulse 100 100 100 Oximetry 02/28/18 02/28/18 02/28/18 04:28 04:33 04:38 Temperature Pulse Rate 136 H 142 H 105 H Respiratory Rate Blood Pressure Blood Pressure [Left] O2 Sat by Pulse 100 100 100 Oximetry 02/28/18 02/28/18 02/28/18 04:43 04:48 04:49 Temperature Pulse Rate 99 H 109 H 105 H Respiratory Rate Blood Pressure 137/87 Blood Pressure [Left] O2 Sat by Pulse 100 100 Oximetry 02/28/18 02/28/18 02/28/18 04:53 04:58 05:03 Temperature Pulse Rate 116 H 99 H 119 H Respiratory Rate Blood Pressure Blood Pressure [Left] O2 Sat by Pulse 100 100 100 Oximetry 02/28/18 02/28/18 02/28/18 05:08 05:13 05:18 Temperature Pulse Rate 102 H 127 H 129 H Respiratory Rate Blood Pressure Blood Pressure [Left] O2 Sat by Pulse 100 100 100 Oximetry 02/28/18 02/28/18 02/28/18 05:23 05:28 05:33 Temperature Pulse Rate 110 H 111 H 119 H Respiratory Rate Blood Pressure Blood Pressure [Left] O2 Sat by Pulse 100 100 100 Oximetry 02/28/18 02/28/18 02/28/18 05:35 05:45 05:46 Temperature Pulse Rate 80 158 H Respiratory Rate Blood Pressure Blood Pressure [Left] O2 Sat by Pulse 74 L 0 L 99 Oximetry 02/28/18 02/28/18 02/28/18 05:50 05:51 05:56 Temperature Pulse Rate 123 H 142 H 121 H Respiratory Rate Blood Pressure 129/74 Blood Pressure [Left] O2 Sat by Pulse 100 98 Oximetry 02/28/18 02/28/18 02/28/18 06:01 06:06 06:11 Temperature Pulse Rate 124 H 113 H 124 H Respiratory Rate Blood Pressure Blood Pressure [Left] O2 Sat by Pulse 99 97 99 Oximetry 02/28/18 02/28/18 02/28/18 06:16 06:21 06:26 Temperature Pulse Rate 119 H 136 H 135 H Respiratory Rate Blood Pressure Blood Pressure [Left] O2 Sat by Pulse 99 100 99 Oximetry 02/28/18 02/28/18 02/28/18 06:31 06:36 06:41 Temperature Pulse Rate 123 H 111 H 111 H Respiratory Rate Blood Pressure Blood Pressure [Left] O2 Sat by Pulse 99 100 100 Oximetry 02/28/18 02/28/18 02/28/18 06:46 06:49 06:51 Temperature Pulse Rate 129 H 120 H 129 H Respiratory Rate Blood Pressure 134/89 Blood Pressure [Left] O2 Sat by Pulse 100 100 Oximetry 02/28/18 02/28/18 02/28/18 06:56 07:01 07:06 Temperature Pulse Rate 111 H 129 H 130 H Respiratory Rate Blood Pressure Blood Pressure [Left] O2 Sat by Pulse 100 100 100 Oximetry 02/28/18 02/28/18 02/28/18 07:11 07:16 07:21 Temperature Pulse Rate 121 H 118 H 133 H Respiratory Rate Blood Pressure Blood Pressure [Left] O2 Sat by Pulse 100 100 98 Oximetry 02/28/18 02/28/18 02/28/18 07:25 07:38 07:39 Temperature Pulse Rate 78 94 H 141 H Respiratory Rate Blood Pressure Blood Pressure [Left] O2 Sat by Pulse 77 L 0 L 100 Oximetry 02/28/18 02/28/18 02/28/18 07:44 07:46 07:49 Temperature 98.4 F Pulse Rate 131 H 127 H 130 H Respiratory 24 Rate Blood Pressure 138/91 Blood Pressure 134/93 [Left] O2 Sat by Pulse 100 100 100 Oximetry 02/28/18 02/28/18 02/28/18 07:51 07:54 07:59 Temperature Pulse Rate 130 H 134 H 119 H Respiratory Rate Blood Pressure 141/95 134/93 Blood Pressure [Left] O2 Sat by Pulse 100 100 Oximetry 02/28/18 02/28/18 02/28/18 08:04 08:06 08:09 Temperature Pulse Rate 117 H 126 H Respiratory 24 Rate Blood Pressure Blood Pressure [Left] O2 Sat by Pulse 100 99 Oximetry 02/28/18 02/28/18 02/28/18 08:14 08:19 08:24 Temperature Pulse Rate 136 H 128 H 124 H Respiratory Rate Blood Pressure Blood Pressure [Left] O2 Sat by Pulse 100 100 100 Oximetry 02/28/18 02/28/18 02/28/18 08:29 08:34 08:37 Temperature Pulse Rate 118 H 137 H Respiratory Rate Blood Pressure Blood Pressure [Left] O2 Sat by Pulse 100 98 92 Oximetry 02/28/18 02/28/18 02/28/18 08:50 09:00 09:01 Temperature Pulse Rate 130 H 72 131 H Respiratory Rate Blood Pressure 113/70 Blood Pressure [Left] O2 Sat by Pulse 100 77 L 100 Oximetry 02/28/18 02/28/18 02/28/18 09:06 09:11 09:16 Temperature Pulse Rate 138 H 129 H 137 H Respiratory Rate Blood Pressure Blood Pressure [Left] O2 Sat by Pulse 99 100 100 Oximetry 02/28/18 02/28/18 02/28/18 09:21 09:26 09:31 Temperature Pulse Rate 126 H 131 H 136 H Respiratory Rate Blood Pressure 126/85 Blood Pressure [Left] O2 Sat by Pulse 100 100 100 Oximetry 02/28/18 02/28/18 02/28/18 09:36 09:41 09:46 Temperature Pulse Rate 140 H 140 H 129 H Respiratory Rate Blood Pressure Blood Pressure [Left] O2 Sat by Pulse 100 100 88 Oximetry 02/28/18 02/28/18 02/28/18 10:18 10:20 10:56 Temperature Pulse Rate 82 125 H 105 H Respiratory Rate Blood Pressure 131/85 Blood Pressure [Left] O2 Sat by Pulse 0 L 73 L Oximetry 02/28/18 02/28/18 02/28/18 10:57 11:01 11:06 Temperature Pulse Rate 120 H 124 H 116 H Respiratory Rate Blood Pressure 130/85 Blood Pressure [Left] O2 Sat by Pulse 100 100 Oximetry 02/28/18 02/28/18 02/28/18 11:11 11:24 11:29 Temperature Pulse Rate 124 H 69 125 H Respiratory Rate Blood Pressure Blood Pressure [Left] O2 Sat by Pulse 99 72 L 99 Oximetry 02/28/18 02/28/18 02/28/18 11:30 11:34 11:39 Temperature Pulse Rate 129 H 125 H 123 H Respiratory Rate Blood Pressure Blood Pressure [Left] O2 Sat by Pulse 68 L 98 99 Oximetry 02/28/18 02/28/18 02/28/18 11:44 11:49 11:51 Temperature Pulse Rate 116 H 114 H 121 H Respiratory Rate Blood Pressure 125/74 Blood Pressure [Left] O2 Sat by Pulse 99 98 Oximetry 02/28/18 02/28/18 11:54 11:59 Temperature Pulse Rate 127 H 111 H Respiratory Rate Blood Pressure Blood Pressure [Left] O2 Sat by Pulse 99 99 Oximetry - Exam Narrative Exam: laying inbed appears mildly uncomfortable during movement NAD Abdomen: Present: normal appearance, soft (gravid , reports diffuse tenderness to palpation , no guarding or rebound tenderness) Uterine Contraction Pattern: Absent Extremities: normal - Labs Labs: Abnormal Labs 02/26/18 02/26/18 02/26/18 17:40 19:24 20:15 WBC 13.9 H RBC 3.44 L Hgb 8.4 L Hct 26.7 L MCV 78 L MCH 24 L RDW 16.1 H Lymph % (Auto) 8.8 L Seg Neutrophils % 85.4 H Seg Neutrophils # 11.9 H Sodium 132 L Chloride 97.1 L Carbon Dioxide 15 L Glucose Calcium AST 355 H ALT 267 H Alkaline Phosphatase 192 H Total Protein Albumin 3.3 L Amylase Urine WBC (Auto) 7.0 H Ur Total Protein 24 Hr Urine Total Protein Acetaminophen 02/26/18 02/26/18 02/27/18 21:29 21:45 09:30 WBC RBC Hgb Hct MCV MCH RDW Lymph % (Auto) Seg Neutrophils % Seg Neutrophils # Sodium 136 L Chloride Carbon Dioxide 17 L Glucose Calcium 8.3 L AST 294 H ALT 239 H Alkaline Phosphatase 172 H Total Protein 6.0 L Albumin 2.9 L Amylase 23 L Urine WBC (Auto) Ur Total Protein 24 Hr Urine Total Protein Acetaminophen < 5.0 L 02/27/18 02/28/18 21:00 09:44 WBC RBC Hgb Hct MCV MCH RDW Lymph % (Auto) Seg Neutrophils % Seg Neutrophils # Sodium 131 L Chloride 97.5 L Carbon Dioxide 15 L Glucose 121 H Calcium 7.9 L AST 424 H ALT 312 H Alkaline Phosphatase 189 H Total Protein 5.9 L Albumin 2.8 L Amylase Urine WBC (Auto) Ur Total Protein 24 Hr 324.50 H Urine Total Protein 59 H Acetaminophen Laboratory Results - last 24 hr 02/27/18 02/27/18 02/28/18 17:40 21:00 09:44 Sodium 131 L Potassium 4.5 Chloride 97.5 L Carbon Dioxide 15 L Anion Gap 23 BUN 13 Creatinine 0.8 Estimated GFR > 60 BUN/Creatinine Ratio 16 Glucose 121 H Calcium 7.9 L Microbiology 02/26/18 14:00 Urine,Catheterized - Straight Catheter Urine Culture - Preliminary NO GROWTH AFTER 24 HOURS Total Bilirubin 0.70 AST 424 H ALT 312 H Alkaline Phosphatase 189 H Total Protein 5.9 L Albumin 2.8 L Albumin/Globulin Ratio 0.9 Urine Total Volume 550 Ur Total Protein 24 Hr 324.50 H Urine Total Protein 59 H Urine Opiates Screen Presumptive negative Urine Methadone Screen Presumptive negative Ur Barbiturates Screen Presumptive negative Ur Phencyclidine Scrn Presumptive negative Ur Amphetamines Screen Presumptive negative U Benzodiazepines Scrn Presumptive negative Urine Cocaine Screen Presumptive negative U Marijuana (THC) Screen Presumptive negative Drugs of Abuse Note Disclamer Active Medications Generic Name Dose Route Start Last Admin Trade Name Freq PRN Reason Stop Dose Admin Acetaminophen 650 mg 02/28/18 06:13 02/28/18 08:06 Tylenol PO 650 mg Q6H PRN Administration Pain MILD(1-3)/Fever >100.5/VERGARA Docusate Sodium 100 mg 02/26/18 18:41 Colace PO Q12H PRN Constipation Famotidine 20 mg 02/26/18 20:00 02/28/18 10:09 Pepcid IV 20 mg QDAY SOFIA Administration Lactated Ringer's 1,000 mls @ 125 mls/hr 02/26/18 19:00 02/28/18 10:17 Lactated Ringers IV 125 mls/hr DIRECT SOFIA Administration Ceftriaxone Sodium 1 gm/ 20 mls @ 2 mls/min 02/26/18 20:45 02/27/18 23:45 Sodium Chloride IV 2 mls/min Q24H SOFIA Administration Multivitamins/Iron/Calcium 1 each 02/27/18 10:00 02/28/18 10:55 Vitamin PO 1 each QDAY SOFIA Administration Ondansetron HCl 4 mg 02/26/18 18:41 02/27/18 08:13 Zofran IV 4 mg Q6H PRN Administration Nausea And Vomiting Simethicone 80 mg 02/28/18 06:11 02/28/18 06:26 Mylicon PO 80 mg Q6H PRN Administration Gas pain Zolpidem Tartrate 10 mg 02/26/18 18:41 02/28/18 01:14 Ambien PO 10 mg ONCE PRN Administration Sleep - Results US- obstetric: other (unable to load report images reviewed BPP 05/29 , total TAMIKA not quantified but MVP>2cm reported)
--- NOTE | 2018-02-28 14:27 | Event Note ---
Date: 02/28/18 (spoke with pt by phone to review POC) After consulting with and review of 's note: 1. stop IV ABX and start PO Macrobid BID until final urine culture is back; preliminary is negative 2. Will get EKG due to persistent tachycardia 3. GB US order for AM; pt must be NPO after MN; AST & ALT remain elevated 4. Complete 24hr urine All questions addressed. Pt voiced understanding and agreement with plan.
[2018-02-28] MEDS ORDERED: BICITRA PO ONE (18:55)
[2018-02-28] MEDS: MACROBID PO SCH (21:54)
--- NOTE | 2018-02-28 22:03 | Ultrasound Report ---
FINAL REPORT PROCEDURE: US OB FOLLOW UP TECHNIQUE: Real-time limited sonographic examination was performed for evaluation of size, position, heartbeat, fluid volume for each fetus with image documentation (1 or more fetuses). CPT 96993 HISTORY: pyelonephritis COMPARISON: . 02/14/2018 FINDINGS: MATERNAL A single intrauterine gestation is identified with cephalic presentation. Amniotic fluid index is 7.3 centimeters. heart rate is 145 beats per minute and is regular. BPD 9.5 centimeters corresponding to 38 weeks and 6 days. HC 33.5 centimeters corresponding to 38 weeks and 2 days. AC 30.5 centimeters corresponding to 34 weeks and 3 days. FL 6.5 centimeters corresponding to 33 weeks and 5 days. HC/AC ratio 1.1 Estimated weight 2578 grams Mean gestational age 36 weeks and 2 days Expected date of conception 03/26/2018 IMPRESSION: 1. Single living intrauterine gestation at approximately 36 weeks and 2 days. 2. EDC by US 03/26/2018.
[2018-03-01] MEDS: LACTATED RINGERS 1,000 ML IV SCH ×2 (02:57→13:29)
[2018-03-01 06:47] LABS: Alanine Aminotransferase 307 units/L (7-56); Lipase 16 units/L (13-60)
[2018-03-01] MEDS ORDERED: FEOSOL PO SCH (08:00)
[2018-03-01] MEDS: TYLENOL PO PRN (08:44)
--- NOTE | 2018-03-01 09:56 | Progress Note ---
Assessment and Plan - Patient Problems (1) 35 weeks gestation of Current Visit: Yes Status: Acute Plan to address problem: S/p Celestone 02/27/2018 (2) Transaminitis Current Visit: Yes Status: Acute Plan to address problem: Abd US report pending Suspicious for PreE. Will wait for US report (3) uterine contractions in third trimester, antepartum Current Visit: Yes Status: Acute (4) UTI (urinary tract infection) Current Visit: Yes Status: Resolved Qualifiers: Urinary tract infection type: acute cystitis (5) Anemia affecting in third trimester Current Visit: Yes Status: Chronic Plan to address problem: now states she's allergic to iron, recheck CBC now Subjective - Subjective Date of service: 03/01/18 Principal diagnosis: IUP@35 w 2d Interval history: Stating in bathroom, with multiple complaints: VERGARA, blurry vision, lower abdominal pain. FM+, no UC's no leaking no bleeding Patient reports: movement normal, contractions, no new complaints, no vaginal bleeding Objective - Vital Signs Vital Signs: Vital Signs - 12hr 02/28/18 03/01/18 03/01/18 22:03 02:49 02:50 Temperature Pulse Rate 101 H 96 H 109 H Respiratory Rate Blood Pressure 117/66 Blood Pressure [Left] O2 Sat by Pulse 88 76 L 99 Oximetry 03/01/18 03/01/18 03/01/18 02:55 03:00 03:05 Temperature Pulse Rate 108 H 105 H 110 H Respiratory Rate Blood Pressure Blood Pressure [Left] O2 Sat by Pulse 100 100 100 Oximetry 03/01/18 03/01/18 03/01/18 03:10 03:15 03:20 Temperature Pulse Rate 93 H 95 H 98 H Respiratory Rate Blood Pressure Blood Pressure [Left] O2 Sat by Pulse 100 100 100 Oximetry 03/01/18 03/01/18 03/01/18 03:25 03:30 03:35 Temperature Pulse Rate 100 H 105 H 103 H Respiratory Rate Blood Pressure Blood Pressure [Left] O2 Sat by Pulse 100 99 99 Oximetry 03/01/18 03/01/18 03/01/18 03:40 03:45 03:50 Temperature Pulse Rate 101 H 113 H 83 Respiratory Rate Blood Pressure Blood Pressure [Left] O2 Sat by Pulse 100 100 77 L Oximetry 03/01/18 03/01/18 03/01/18 04:07 04:09 04:13 Temperature Pulse Rate 76 128 H 66 Respiratory Rate Blood Pressure Blood Pressure [Left] O2 Sat by Pulse 0 L 100 85 Oximetry 03/01/18 03/01/18 03/01/18 04:14 04:19 04:24 Temperature Pulse Rate 120 H 109 H 106 H Respiratory Rate Blood Pressure Blood Pressure [Left] O2 Sat by Pulse 97 100 100 Oximetry 03/01/18 03/01/18 03/01/18 04:29 04:34 04:39 Temperature Pulse Rate 108 H 116 H 104 H Respiratory Rate Blood Pressure Blood Pressure [Left] O2 Sat by Pulse 100 100 99 Oximetry 03/01/18 03/01/18 03/01/18 04:44 04:49 04:54 Temperature Pulse Rate 116 H 122 H 111 H Respiratory Rate Blood Pressure Blood Pressure [Left] O2 Sat by Pulse 99 100 99 Oximetry 03/01/18 03/01/18 03/01/18 04:59 05:16 05:19 Temperature Pulse Rate 130 H 67 77 Respiratory Rate Blood Pressure Blood Pressure [Left] O2 Sat by Pulse 100 82 L 81 L Oximetry 03/01/18 03/01/18 03/01/18 05:24 05:29 05:34 Temperature Pulse Rate 121 H 102 H 104 H Respiratory Rate Blood Pressure Blood Pressure [Left] O2 Sat by Pulse 99 99 99 Oximetry 03/01/18 03/01/18 03/01/18 07:44 07:47 07:48 Temperature Pulse Rate 93 H 98 H 99 H Respiratory Rate Blood Pressure 137/91 139/94 Blood Pressure [Left] O2 Sat by Pulse 96 Oximetry 03/01/18 03/01/18 03/01/18 07:49 07:54 07:55 Temperature 97 F L Pulse Rate 96 H 103 H 97 H Respiratory 21 Rate Blood Pressure 137/93 Blood Pressure 142/93 [Left] O2 Sat by Pulse 100 100 99 Oximetry 03/01/18 03/01/18 03/01/18 07:57 07:59 08:00 Temperature 97.9 F Pulse Rate 99 H 93 H 89 Respiratory 20 Rate Blood Pressure 142/93 Blood Pressure 135/84 [Left] O2 Sat by Pulse 100 99 Oximetry 03/01/18 03/01/18 03/01/18 08:04 08:09 08:14 Temperature Pulse Rate 112 H 92 H 92 H Respiratory Rate Blood Pressure Blood Pressure [Left] O2 Sat by Pulse 99 100 100 Oximetry 03/01/18 03/01/18 03/01/18 08:19 08:24 08:29 Temperature Pulse Rate 90 95 H 102 H Respiratory Rate Blood Pressure Blood Pressure [Left] O2 Sat by Pulse 100 100 100 Oximetry 03/01/18 03/01/18 03/01/18 08:34 08:39 08:44 Temperature Pulse Rate 104 H 95 H 91 H Respiratory 20 Rate Blood Pressure 135/84 Blood Pressure [Left] O2 Sat by Pulse 100 99 100 Oximetry 03/01/18 03/01/18 03/01/18 08:48 08:49 08:54 Temperature Pulse Rate 99 H 100 H 114 H Respiratory Rate Blood Pressure 139/85 Blood Pressure [Left] O2 Sat by Pulse 100 98 Oximetry 03/01/18 03/01/18 03/01/18 08:59 09:03 09:14 Temperature Pulse Rate 93 H 79 58 L Respiratory Rate Blood Pressure Blood Pressure [Left] O2 Sat by Pulse 100 75 L 82 L Oximetry 03/01/18 09:23 Temperature Pulse Rate 87 Respiratory Rate Blood Pressure Blood Pressure [Left] O2 Sat by Pulse 0 L Oximetry - Exam Breasts: deferred Cardiovascular: Regular rate Lungs: Clear to auscultation, Normal air movement Abdomen: Present: normal appearance, soft FHR: category 1 Uterine Contraction Monitor Mode: External Extremities: edema (2+) - Labs Labs: Abnormal Labs 02/26/18 02/26/18 02/26/18 17:40 19:24 20:15 WBC 13.9 H RBC 3.44 L Hgb 8.4 L Hct 26.7 L MCV 78 L MCH 24 L RDW 16.1 H Lymph % (Auto) 8.8 L Seg Neutrophils % 85.4 H Seg Neutrophils # 11.9 H Sodium 132 L Chloride 97.1 L Carbon Dioxide 15 L Glucose Calcium AST 355 H ALT 267 H Alkaline Phosphatase 192 H Total Protein Albumin 3.3 L Amylase Urine WBC (Auto) 7.0 H Ur Total Protein 24 Hr Urine Total Protein Acetaminophen 02/26/18 02/26/18 02/27/18 21:29 21:45 09:30 WBC RBC Hgb Hct MCV MCH RDW Lymph % (Auto) Seg Neutrophils % Seg Neutrophils # Sodium 136 L Chloride Carbon Dioxide 17 L Glucose Calcium 8.3 L AST 294 H ALT 239 H Alkaline Phosphatase 172 H Total Protein 6.0 L Albumin 2.9 L Amylase 23 L Urine WBC (Auto) Ur Total Protein 24 Hr Urine Total Protein Acetaminophen < 5.0 L 02/27/18 02/28/18 02/28/18 21:00 09:44 11:29 WBC 27.2 H RBC 3.08 L Hgb 7.7 L Hct 23.7 L MCV 77 L MCH 25 L RDW 16.5 H Lymph % (Auto) Seg Neutrophils % Seg Neutrophils # Sodium 131 L Chloride 97.5 L Carbon Dioxide 15 L Glucose 121 H Calcium 7.9 L AST 424 H ALT 312 H Alkaline Phosphatase 189 H Total Protein 5.9 L Albumin 2.8 L Amylase Urine WBC (Auto) Ur Total Protein 24 Hr 324.50 H Urine Total Protein 59 H Acetaminophen 03/01/18 03/01/18 00:01 05:47 WBC RBC Hgb Hct MCV MCH RDW Lymph % (Auto) Seg Neutrophils % Seg Neutrophils # Sodium Chloride Carbon Dioxide Glucose Calcium AST 394 H ALT 307 H Alkaline Phosphatase Total Protein Albumin Amylase 13 L Urine WBC (Auto) Ur Total Protein 24 Hr 323.00 H Urine Total Protein 17 H Acetaminophen Laboratory Results - last 24 hr 02/28/18 02/28/18 03/01/18 09:44 11:29 00:01 WBC 27.2 H RBC 3.08 L Hgb 7.7 L Hct 23.7 L MCV 77 L MCH 25 L MCHC 32 RDW 16.5 H Plt Count 195 Sodium 131 L Potassium 4.5 Chloride 97.5 L Carbon Dioxide 15 L Anion Gap 23 BUN 13 Creatinine 0.8 Estimated GFR > 60 BUN/Creatinine Ratio 16 Glucose 121 H Calcium 7.9 L Total Bilirubin 0.70 AST 424 H ALT 312 H Alkaline Phosphatase 189 H Total Protein 5.9 L Albumin 2.8 L Albumin/Globulin Ratio 0.9 Amylase Lipase Urine Total Volume 1900 Ur Total Protein 24 Hr 323.00 H Urine Total Protein 17 H 03/01/18 05:47 WBC RBC Hgb Hct MCV MCH MCHC RDW Plt Count Sodium Potassium Chloride Carbon Dioxide Anion Gap BUN Creatinine Estimated GFR BUN/Creatinine Ratio Glucose Calcium Total Bilirubin AST 394 H ALT 307 H Alkaline Phosphatase Total Protein Albumin Albumin/Globulin Ratio Amylase 13 L Lipase 16 Urine Total Volume Ur Total Protein 24 Hr Urine Total Protein
--- NOTE | 2018-03-01 10:09 | Ultrasound Report ---
ULTRASOUND ABDOMEN COMPLETE INDICATION: Elevated LFTs. Third trimester, approximately 35 weeks . COMPARISON: None similar. FINDINGS: Abdominal sonography suggests minimal diffuse hepatic echogenic coarsening with grossly preserved contours. No definite focal suspicious lesions or biliary dilatation. No gallstones or pericholecystic fluid. Gallbladder wall thickness is 1.6 mm. Common bile duct is 2.5 mm. Homogenous spleen, approximately 9 cm in length. No ascites. Pancreas not visualized. Unremarkable IVC. Nonaneurysmal abdominal aorta. Right kidney approximately 10.4 x 4 x 4.4 cm with cortical thickness of 1.3 cm while the left kidney is 10.9 x 5 x 4.8 cm with cortical thickness of 1.4 cm. No significant hydronephrosis, though slight left intrarenal collecting system fullness centrally may be noted. CONCLUSION: No acute significant abdominal sonographic abnormality in this patient with left renal sonographic appearance and questionable subtle hepatic echogenic coarsening, as described. Please correlate. Thank you for the opportunity to participate in this patient's care.
[2018-03-01] MEDS: PEPCID IV SCH (10:20)
[2018-03-01] MEDS: MACROBID PO SCH ×2 (10:20→23:09)
[2018-03-01] MEDS: PRENATAL VITAMIN PO SCH (10:20)
[2018-03-01 10:45] LABS: Hematocrit 24.9 % (30.3-42.9); Hemoglobin 7.7 gm/dl (10.1-14.3); Mean Corpuscular HGB Conc 31 % (30-34); Mean Corpuscular Volume 80 fl (79-97); Platelet Count 177 K/mm3 (140-440); Red Blood Count 3.13 M/mm3 (3.65-5.03); Red Cell Distribution Width 16.6 % (13.2-15.2)
[2018-03-01 10:46] LABS: Mean Corpuscular Hemoglobin 25 pg (28-32)
[2018-03-01 11:24] LABS: Anisocytosis 1+; Band Neutrophils # (Manual) 0.8 K/mm3; Basophils % (Manual) 0 % (0.0-1.8); Eosinophils % (Manual) 0 % (0.0-4.3); Poikilocytosis 1+; Total Cells Counted 100
[2018-03-01 11:25] LABS: Acanthocytes Few; Hypochromasia 1+; Ovalocytes 1+
[2018-03-01 11:26] LABS: Platelet Estimate Cons
[2018-03-01 12:22] LABS: BUN/Creatinine Ratio 16; Blood Urea Nitrogen 13 mg/dL (7-17); Calcium 8.1 mg/dL (8.4-10.2); Hemolysis Index 1
[2018-03-01] MEDS ORDERED: SUBLIMAZE IV ONE (16:49)
[2018-03-01] MEDS ORDERED: PROTONIX IV ONE (16:50)
[2018-03-01] MEDS ORDERED: BRETHINE IVP PRN (18:51)
[2018-03-01] MEDS ORDERED: ePHEDrine SULFATE IV PRN (18:51)
[2018-03-01] MEDS ORDERED: NUBAIN IV PRN (18:51)
[2018-03-01] MEDS ORDERED: NARCAN 0.4 MG/1 ML IV PRN (18:51)
[2018-03-01] MEDS ORDERED: PHENERGAN PO PRN (18:51)
[2018-03-01] MEDS ORDERED: MAGNESIUM SULFATE 4GM/100ML 4 GM/100 ML BAG IV ONE (18:51)
[2018-03-01] MEDS ORDERED: STADOL IV PRN (18:51)
[2018-03-01] MEDS ORDERED: BRETHINE SUB-Q PRN (18:51)
[2018-03-01] MEDS ORDERED: PHENERGAN PR PRN (18:51)
[2018-03-01] MEDS ORDERED: MINERAL OIL PO PRN (18:51)
[2018-03-01] MEDS ORDERED: APRESOLINE IV PRN (18:51)
[2018-03-01] MEDS ORDERED: ZOFRAN IV PRN (18:51)
[2018-03-01] MEDS ORDERED: XYLOCAINE 2% INFILTRATI ONE (18:51)
[2018-03-01] MEDS ORDERED: LACTATED RINGERS 1,000 ML IV SCH (19:00)
[2018-03-01] MEDS ORDERED: PITOCin/NS 20 UNIT/1000ML DRIP 20 UNITS/1,000 ML BAG IV SCH (19:00)
[2018-03-01] MEDS ORDERED: CERVIDIL VG ONE (19:00)
--- NOTE | 2018-03-01 19:06 | Progress Note ---
Assessment and Plan - Patient Problems (1) 35 weeks gestation of Current Visit: Yes Status: Acute (2) Pre-eclampsia Current Visit: Yes Status: Acute Qualifiers: Trimester: third trimester Qualified Code(s): O14.93 - Unspecified pre- eclampsia, third trimester Plan to address problem: S/w Dr. Carranza earlier who recommends proceeding with induction d/t preeclampsia elevate LFTs. Preeclampsia and the need for delivery was explained. Options were discussed. Cervidil and serial induction was explained. Indications and risk for MgSO4 reviewed. Questions were enocuraged and answered. She voiced understanding and agrees with proceeding with delivery. (3) Transaminitis Current Visit: Yes Status: Acute (4) uterine contractions in third trimester, antepartum Current Visit: Yes Status: Acute (5) Anemia affecting in third trimester Current Visit: Yes Status: Chronic Subjective - Subjective Date of service: 03/01/18 Principal diagnosis: IUP@35 w 2d Patient reports: movement normal, contractions, no new complaints, no vaginal bleeding Objective - Vital Signs Vital Signs: Vital Signs - 12hr 03/01/18 03/01/18 03/01/18 07:44 07:47 07:48 Temperature Pulse Rate 93 H 98 H 99 H Respiratory Rate Blood Pressure 137/91 139/94 Blood Pressure [Left] O2 Sat by Pulse 96 Oximetry 03/01/18 03/01/18 03/01/18 07:49 07:54 07:55 Temperature 97 F L Pulse Rate 96 H 103 H 97 H Respiratory 21 Rate Blood Pressure 137/93 Blood Pressure 142/93 [Left] O2 Sat by Pulse 100 100 99 Oximetry 03/01/18 03/01/18 03/01/18 07:57 07:59 08:00 Temperature 97.9 F Pulse Rate 99 H 93 H 89 Respiratory 20 Rate Blood Pressure 142/93 Blood Pressure 135/84 [Left] O2 Sat by Pulse 100 99 Oximetry 03/01/18 03/01/18 03/01/18 08:04 08:09 08:14 Temperature Pulse Rate 112 H 92 H 92 H Respiratory Rate Blood Pressure Blood Pressure [Left] O2 Sat by Pulse 99 100 100 Oximetry 03/01/18 03/01/18 03/01/18 08:19 08:24 08:29 Temperature Pulse Rate 90 95 H 102 H Respiratory Rate Blood Pressure Blood Pressure [Left] O2 Sat by Pulse 100 100 100 Oximetry 03/01/18 03/01/18 03/01/18 08:34 08:39 08:44 Temperature Pulse Rate 104 H 95 H 91 H Respiratory 20 Rate Blood Pressure 135/84 Blood Pressure [Left] O2 Sat by Pulse 100 99 100 Oximetry 03/01/18 03/01/18 03/01/18 08:48 08:49 08:54 Temperature Pulse Rate 99 H 100 H 114 H Respiratory Rate Blood Pressure 139/85 Blood Pressure [Left] O2 Sat by Pulse 100 98 Oximetry 03/01/18 03/01/18 03/01/18 08:59 09:03 09:14 Temperature Pulse Rate 93 H 79 58 L Respiratory Rate Blood Pressure Blood Pressure [Left] O2 Sat by Pulse 100 75 L 82 L Oximetry 03/01/18 03/01/18 03/01/18 09:23 10:17 10:26 Temperature Pulse Rate 87 69 Respiratory Rate Blood Pressure Blood Pressure [Left] O2 Sat by Pulse 0 L 80 L 91 Oximetry 03/01/18 03/01/18 03/01/18 11:38 11:43 11:51 Temperature Pulse Rate Respiratory Rate Blood Pressure Blood Pressure [Left] O2 Sat by Pulse 79 L 79 L 91 Oximetry 03/01/18 03/01/18 03/01/18 11:52 11:57 12:02 Temperature Pulse Rate 106 H 104 H 114 H Respiratory Rate Blood Pressure Blood Pressure [Left] O2 Sat by Pulse 99 98 98 Oximetry 03/01/18 03/01/18 03/01/18 12:07 12:23 12:24 Temperature Pulse Rate 102 H 125 H Respiratory Rate Blood Pressure Blood Pressure [Left] O2 Sat by Pulse 98 79 L 100 Oximetry 03/01/18 03/01/18 03/01/18 12:29 12:34 12:39 Temperature Pulse Rate 101 H 101 H 90 Respiratory Rate Blood Pressure Blood Pressure [Left] O2 Sat by Pulse 99 98 98 Oximetry 03/01/18 03/01/18 03/01/18 12:44 12:49 12:54 Temperature Pulse Rate 95 H 101 H 103 H Respiratory Rate Blood Pressure Blood Pressure [Left] O2 Sat by Pulse 98 97 96 Oximetry 03/01/18 03/01/18 03/01/18 12:59 13:04 13:09 Temperature Pulse Rate 108 H 102 H 99 H Respiratory Rate Blood Pressure Blood Pressure [Left] O2 Sat by Pulse 96 96 96 Oximetry 03/01/18 03/01/18 03/01/18 13:14 13:19 13:24 Temperature Pulse Rate 109 H 123 H 106 H Respiratory Rate Blood Pressure Blood Pressure [Left] O2 Sat by Pulse 95 98 96 Oximetry 03/01/18 03/01/18 03/01/18 13:29 13:34 13:36 Temperature Pulse Rate 105 H 108 H 111 H Respiratory Rate Blood Pressure 142/80 Blood Pressure [Left] O2 Sat by Pulse 96 97 Oximetry 03/01/18 03/01/18 03/01/18 13:39 13:44 13:49 Temperature Pulse Rate 112 H 97 H 103 H Respiratory Rate Blood Pressure Blood Pressure [Left] O2 Sat by Pulse 95 96 96 Oximetry 03/01/18 03/01/18 03/01/18 13:54 13:59 14:04 Temperature Pulse Rate 106 H 105 H 107 H Respiratory Rate Blood Pressure Blood Pressure [Left] O2 Sat by Pulse 95 95 95 Oximetry 03/01/18 03/01/18 03/01/18 14:09 14:14 14:19 Temperature Pulse Rate 118 H 97 H 98 H Respiratory Rate Blood Pressure Blood Pressure [Left] O2 Sat by Pulse 96 96 96 Oximetry 03/01/18 03/01/18 03/01/18 14:21 14:24 14:26 Temperature Pulse Rate 123 H 98 H 106 H Respiratory Rate Blood Pressure Blood Pressure [Left] O2 Sat by Pulse 94 95 94 Oximetry 03/01/18 03/01/18 03/01/18 14:29 14:34 14:39 Temperature Pulse Rate 109 H 111 H 103 H Respiratory Rate Blood Pressure Blood Pressure [Left] O2 Sat by Pulse 94 96 96 Oximetry 03/01/18 03/01/18 03/01/18 14:44 15:12 15:30 Temperature Pulse Rate 125 H 58 L 114 H Respiratory Rate Blood Pressure Blood Pressure [Left] O2 Sat by Pulse 94 0 L 97 Oximetry 03/01/18 03/01/18 03/01/18 15:35 15:40 15:45 Temperature Pulse Rate 113 H 104 H 98 H Respiratory Rate Blood Pressure Blood Pressure [Left] O2 Sat by Pulse 99 100 99 Oximetry 03/01/18 03/01/18 03/01/18 15:52 16:24 16:32 Temperature Pulse Rate 69 63 126 H Respiratory Rate Blood Pressure Blood Pressure [Left] O2 Sat by Pulse 0 L 0 L 95 Oximetry 03/01/18 03/01/18 03/01/18 16:35 16:37 16:42 Temperature Pulse Rate 99 H 109 H 110 H Respiratory Rate Blood Pressure 137/84 Blood Pressure [Left] O2 Sat by Pulse 97 97 Oximetry 03/01/18 03/01/18 03/01/18 16:47 16:48 16:52 Temperature Pulse Rate 111 H 111 H 117 H Respiratory Rate Blood Pressure 149/91 Blood Pressure [Left] O2 Sat by Pulse 97 97 Oximetry 03/01/18 03/01/18 03/01/18 16:57 17:18 17:19 Temperature Pulse Rate 105 H 74 78 Respiratory Rate Blood Pressure Blood Pressure [Left] O2 Sat by Pulse 97 0 L 79 L Oximetry 03/01/18 03/01/18 03/01/18 17:24 17:29 17:34 Temperature Pulse Rate 94 H 91 H 85 Respiratory Rate Blood Pressure Blood Pressure [Left] O2 Sat by Pulse 96 96 96 Oximetry 03/01/18 03/01/18 03/01/18 17:39 17:44 17:48 Temperature Pulse Rate 86 100 H 93 H Respiratory Rate Blood Pressure 127/88 Blood Pressure [Left] O2 Sat by Pulse 97 97 Oximetry 03/01/18 03/01/18 03/01/18 17:49 17:54 18:11 Temperature Pulse Rate 117 H 107 H Respiratory Rate Blood Pressure Blood Pressure [Left] O2 Sat by Pulse 96 97 88 Oximetry 03/01/18 03/01/18 03/01/18 18:20 18:25 18:30 Temperature Pulse Rate 75 116 H 118 H Respiratory Rate Blood Pressure Blood Pressure [Left] O2 Sat by Pulse 79 L 97 96 Oximetry 03/01/18 03/01/18 18:35 18:49 Temperature Pulse Rate 115 H 107 H Respiratory Rate Blood Pressure 154/98 Blood Pressure [Left] O2 Sat by Pulse 97 Oximetry - Exam Breasts: deferred Cardiovascular: Regular rate Lungs: Clear to auscultation, Normal air movement Abdomen: Present: normal appearance, soft. Absent: tenderness Vulva: both: normal Uterus: Present: normal. Absent: tenderness FHR: category 1 Cervical Dilatation: 1 Cervical Effacement Percentage: 30 station: -1 midline soft - Labs Labs: Abnormal Labs 02/26/18 02/26/18 02/26/18 17:40 19:24 20:15 WBC 13.9 H RBC 3.44 L Hgb 8.4 L Hct 26.7 L MCV 78 L MCH 24 L RDW 16.1 H Lymph % (Auto) 8.8 L Seg Neutrophils % 85.4 H Seg Neuts % (Manual) Lymphocytes % (Manual) Nucleated RBC % Seg Neutrophils # 11.9 H Seg Neutrophils # Man Monocytes # (Manual) Sodium 132 L Chloride 97.1 L Carbon Dioxide 15 L Glucose Calcium AST 355 H ALT 267 H Alkaline Phosphatase 192 H Total Protein Albumin 3.3 L Amylase Urine WBC (Auto) 7.0 H Ur Total Protein 24 Hr Urine Total Protein Acetaminophen 02/26/18 02/26/18 02/27/18 21:29 21:45 09:30 WBC RBC Hgb Hct MCV MCH RDW Lymph % (Auto) Seg Neutrophils % Seg Neuts % (Manual) Lymphocytes % (Manual) Nucleated RBC % Seg Neutrophils # Seg Neutrophils # Man Monocytes # (Manual) Sodium 136 L Chloride Carbon Dioxide 17 L Glucose Calcium 8.3 L AST 294 H ALT 239 H Alkaline Phosphatase 172 H Total Protein 6.0 L Albumin 2.9 L Amylase 23 L Urine WBC (Auto) Ur Total Protein 24 Hr Urine Total Protein Acetaminophen < 5.0 L 02/27/18 02/28/18 02/28/18 21:00 09:44 11:29 WBC 27.2 H RBC 3.08 L Hgb 7.7 L Hct 23.7 L MCV 77 L MCH 25 L RDW 16.5 H Lymph % (Auto) Seg Neutrophils % Seg Neuts % (Manual) Lymphocytes % (Manual) Nucleated RBC % Seg Neutrophils # Seg Neutrophils # Man Monocytes # (Manual) Sodium 131 L Chloride 97.5 L Carbon Dioxide 15 L Glucose 121 H Calcium 7.9 L AST 424 H ALT 312 H Alkaline Phosphatase 189 H Total Protein 5.9 L Albumin 2.8 L Amylase Urine WBC (Auto) Ur Total Protein 24 Hr 324.50 H Urine Total Protein 59 H Acetaminophen 03/01/18 03/01/18 03/01/18 00:01 05:47 05:47 WBC RBC Hgb Hct MCV MCH RDW Lymph % (Auto) Seg Neutrophils % Seg Neuts % (Manual) Lymphocytes % (Manual) Nucleated RBC % Seg Neutrophils # Seg Neutrophils # Man Monocytes # (Manual) Sodium Chloride Carbon Dioxide 19 L Glucose Calcium 8.1 L AST 394 H ALT 307 H Alkaline Phosphatase Total Protein Albumin Amylase 13 L Urine WBC (Auto) Ur Total Protein 24 Hr 323.00 H Urine Total Protein 17 H Acetaminophen 03/01/18 09:40 WBC 21.6 H RBC 3.13 L Hgb 7.7 L Hct 24.9 L MCV MCH 25 L RDW 16.6 H Lymph % (Auto) Seg Neutrophils % Seg Neuts % (Manual) 79.0 H Lymphocytes % (Manual) 10.0 L Nucleated RBC % 9.0 H Seg Neutrophils # Seg Neutrophils # Man 16.7 H Monocytes # (Manual) 1.1 H Sodium Chloride Carbon Dioxide Glucose Calcium AST ALT Alkaline Phosphatase Total Protein Albumin Amylase Urine WBC (Auto) Ur Total Protein 24 Hr Urine Total Protein Acetaminophen Laboratory Results - last 24 hr 03/01/18 03/01/18 03/01/18 00:01 05:47 05:47 WBC RBC Hgb Hct MCV MCH MCHC RDW Plt Count Add Manual Diff Total Counted Seg Neuts % (Manual) Band Neutrophils % Lymphocytes % (Manual) Reactive Lymphs % (Man) Monocytes % (Manual) Eosinophils % (Manual) Basophils % (Manual) Metamyelocytes % Myelocytes % Promyelocytes % Blast Cells % Nucleated RBC % Seg Neutrophils # Man Band Neutrophils # Lymphocytes # (Manual) Abs React Lymphs (Man) Monocytes # (Manual) Eosinophils # (Manual) Basophils # (Manual) Metamyelocytes # Myelocytes # Promyelocytes # Blast Cells # WBC Morphology Hypersegmented Neuts Hyposegmented Neuts Hypogranular Neuts Smudge Cells Toxic Granulation Toxic Vacuolation Dohle Bodies Pelger-Huet Anomaly Antoni Rods Platelet Estimate Clumped Platelets Plt Clumps, EDTA Large Platelets Giant Platelets Platelet Satelliting Plt Morphology Comment RBC Morphology Dimorphic RBCs Polychromasia Hypochromasia Poikilocytosis Anisocytosis Microcytosis Macrocytosis Spherocytes Pappenheimer Bodies Sickle Cells Target Cells Tear Drop Cells Ovalocytes Helmet Cells [place] Bodies [place] Rings [place] Cells Bite Cells Crenated Cell Elliptocytes Acanthocytes (Spur) Rouleaux Hemoglobin C Crystals Schistocytes Malaria parasites Rufino Bodies Hem Pathologist Commnt Sodium 138 D Potassium 3.9 Chloride 101.7 Carbon Dioxide 19 L Anion Gap 21 BUN 13 Creatinine 0.8 Estimated GFR > 60 BUN/Creatinine Ratio 16 Glucose 83 Calcium 8.1 L AST 394 H ALT 307 H Amylase 13 L Lipase 16 Urine Total Volume 1900 Ur Total Protein 24 Hr 323.00 H Urine Total Protein 17 H RPR Blood Type Antibody Screen 03/01/18 03/01/18 03/01/18 09:40 09:40 09:40 WBC 21.6 H RBC 3.13 L Hgb 7.7 L Hct 24.9 L MCV 80 MCH 25 L MCHC 31 RDW 16.6 H Plt Count 177 Add Manual Diff Complete Total Counted 100 Seg Neuts % (Manual) 79.0 H Band Neutrophils % 4.0 Lymphocytes % (Manual) 10.0 L Reactive Lymphs % (Man) 0 Monocytes % (Manual) 5.0 Eosinophils % (Manual) 0 Basophils % (Manual) 0 Metamyelocytes % 2.0 Myelocytes % 0 Promyelocytes % 0 Blast Cells % 0 Nucleated RBC % 9.0 H Seg Neutrophils # Man 16.7 H Band Neutrophils # 0.8 Lymphocytes # (Manual) 2.1 Abs React Lymphs (Man) 0.0 Monocytes # (Manual) 1.1 H Eosinophils # (Manual) 0.0 Basophils # (Manual) 0.0 Metamyelocytes # 0.4 Myelocytes # 0.0 Promyelocytes # 0.0 Blast Cells # 0.0 WBC Morphology Not Reportable Hypersegmented Neuts Not Reportable Hyposegmented Neuts Not Reportable Hypogranular Neuts Not Reportable Smudge Cells Not Reportable Toxic Granulation Not Reportable Toxic Vacuolation Not Reportable Dohle Bodies Not Reportable Pelger-Huet Anomaly Not Reportable Antoni Rods Not Reportable Platelet Estimate Cons Clumped Platelets Not Reportable Plt Clumps, EDTA Not Reportable Large Platelets Not Reportable Giant Platelets Not Reportable Platelet Satelliting Not Reportable Plt Morphology Comment Not Reportable RBC Morphology Not Reportable Dimorphic RBCs Not Reportable Polychromasia Not Reportable Hypochromasia 1+ Poikilocytosis 1+ Anisocytosis 1+ Microcytosis Not Reportable Macrocytosis Not Reportable Spherocytes Not Reportable Pappenheimer Bodies Not Reportable Sickle Cells Not Reportable Target Cells Not Reportable Tear Drop Cells Not Reportable Ovalocytes 1+ Helmet Cells Not Reportable [place] Bodies Not Reportable [place] Rings Not Reportable Brian Cells Not Reportable Bite Cells Not Reportable Crenated Cell Not Reportable Elliptocytes Few Acanthocytes (Spur) Few Rouleaux Not Reportable Hemoglobin C Crystals Not Reportable Schistocytes Not Reportable Malaria parasites Not Reportable Rufino Bodies Not Reportable Hem Pathologist Commnt No Sodium Potassium Chloride Carbon Dioxide Anion Gap BUN Creatinine Estimated GFR BUN/Creatinine Ratio Glucose Calcium AST ALT Amylase Lipase Urine Total Volume Ur Total Protein 24 Hr Urine Total Protein RPR Nonreactive Blood Type AB POSITIVE Antibody Screen Negative
--- NOTE | 2018-03-01 20:54 | Event Note ---
Date: 03/01/18 cervdil placed at 2030, cervix unchanged, no questions
[2018-03-01] MEDS: MAGNESIUM SULFATE 40GM/1000ML 40 GM/1,000 ML BAG IV SCH (21:35)
[2018-03-02] MEDS ORDERED: XYLOCAINE TOPICAL 2% 30ML TP PRN (00:41)
[2018-03-02] MEDS: TYLENOL PO PRN (01:13)
[2018-03-02] MEDS: LACTATED RINGERS 1,000 ML IV SCH ×3 (05:09→17:29)
[2018-03-02] MEDS: SUBLIMAZE IV PRN ×2 (05:18→11:03)
[2018-03-02 06:05] LABS: Alanine Aminotransferase 386 units/L (7-56)
[2018-03-02 06:12] LABS: Red Blood Count 3.09 M/mm3 (3.65-5.03)
[2018-03-02 06:13] LABS: Hematocrit 24.5 % (30.3-42.9); Hemoglobin 7.6 gm/dl (10.1-14.3); Mean Corpuscular HGB Conc 31 % (30-34); Mean Corpuscular Hemoglobin 24 pg (28-32); Mean Corpuscular Volume 79 fl (79-97); Mean Platelet Volume 10.3 fl (6-12); Platelet Count 214 K/mm3 (140-440); Red Cell Distribution Width 16.9 % (13.2-15.2)
[2018-03-02] MEDS ORDERED: PITOCin/NS 30 UNIT/500ML 30,000 MILLIUNITS/500 ML BAG IV ONE (10:00)
[2018-03-02] MEDS: MACROBID PO SCH ×2 (10:59→22:49)
[2018-03-02] MEDS: PRENATAL VITAMIN PO SCH (10:59)
[2018-03-02] MEDS ORDERED: CERVIDIL VG ONE (11:00)
[2018-03-02] MEDS: MAGNESIUM SULFATE 40GM/1000ML 40 GM/1,000 ML BAG IV SCH ×3 (14:01→22:50)
[2018-03-02] MEDS: ZOFRAN IV PRN ×2 (14:43→20:11)
--- NOTE | 2018-03-02 15:18 | Progress Note ---
Assessment and Plan - Patient Problems (1) 35 weeks gestation of Current Visit: Yes Status: Acute Plan to address problem: Discussed with the patient the possibility of transfer due to NICU diversion presently. At this time patient is stable continue to observe her here but did discuss the possibility of transfer and her if dictated by the absorption plant operator. (2) Pre-eclampsia Current Visit: Yes Status: Acute Qualifiers: Trimester: third trimester Qualified Code(s): O14.93 - Unspecified pre- eclampsia, third trimester Plan to address problem: Patient with elements of severe preeclampsia with the elevation of her liver function tests blood pressure. Most part have been normotensive but with the episodes of elevated blood pressure. Patient with not much change with the first Cervidil will repeat Cervidil. This plan of care was discussed with patient and her significant other questions were answered. (3) Transaminitis Current Visit: Yes Status: Acute Plan to address problem: Unknown etiology A she with a normal abdominal ultrasound and possibly varicose eclampsia therefore decision to induce labor. (4) Anemia affecting in third trimester Current Visit: Yes Status: Chronic (5) Hypermagnesemia Current Visit: Yes Status: Acute Plan to address problem: May be the etiology of her increased some GI symptoms patient is still alert has some decreased reflexes. Patient is groggy but understands direction last questions appropriately. Will stop the magnesium sulfate for now. All questions answered from patient and her significant other. Subjective - Subjective Date of service: 03/02/18 Principal diagnosis: IUP@35 w 2d Patient reports: movement normal, contractions (very irregular), other ( patient with nausea and vomiting in present coffee-ground.), no new complaints, no vaginal bleeding Objective - Vital Signs Vital Signs: Vital Signs - 12hr 03/02/18 03/02/18 03/02/18 03:17 03:18 03:23 Pulse Rate 121 H 124 H 114 H Blood Pressure 134/80 O2 Sat by Pulse 98 95 Oximetry 03/02/18 03/02/18 03/02/18 03:28 03:33 03:38 Pulse Rate 116 H 122 H 117 H Blood Pressure O2 Sat by Pulse 97 96 99 Oximetry 03/02/18 03/02/18 03/02/18 03:43 03:48 03:53 Pulse Rate 120 H 135 H 124 H Blood Pressure O2 Sat by Pulse 100 95 98 Oximetry 0503/02/18 03/02/18 03:58 04:03 04:08 Pulse Rate 117 H 120 H 114 H Blood Pressure O2 Sat by Pulse 98 98 97 Oximetry 03/02/18 03/02/18 03/02/18 04:09 04:13 04:18 Pulse Rate 115 H 111 H 117 H Blood Pressure 131/79 O2 Sat by Pulse 98 97 Oximetry 03/02/18 03/02/18 03/02/18 04:23 04:30 04:34 Pulse Rate 114 H 127 H 70 Blood Pressure O2 Sat by Pulse 96 98 82 L Oximetry 03/02/18 03/02/18 03/02/18 04:36 04:39 04:42 Pulse Rate 100 H Blood Pressure O2 Sat by Pulse 85 79 L 81 L Oximetry 03/02/18 03/02/18 03/02/18 04:44 04:52 04:55 Pulse Rate 134 H 53 L 59 L Blood Pressure O2 Sat by Pulse 80 L 81 L 82 L Oximetry 03/02/18 03/02/18 03/02/18 04:59 05:00 05:05 Pulse Rate 58 L Blood Pressure O2 Sat by Pulse 81 L 82 L 80 L Oximetry 03/02/18 03/02/18 03/02/18 05:09 05:10 05:15 Pulse Rate 113 H 110 H 113 H Blood Pressure 138/87 O2 Sat by Pulse 99 99 Oximetry 03/02/18 03/02/18 03/02/18 05:20 05:25 05:29 Pulse Rate 116 H 114 H 109 H Blood Pressure O2 Sat by Pulse 98 99 94 Oximetry 03/02/18 03/02/18 03/02/18 05:30 05:35 05:40 Pulse Rate 107 H 103 H 109 H Blood Pressure O2 Sat by Pulse 95 95 98 Oximetry 03/02/18 03/02/18 03/02/18 05:45 05:50 05:55 Pulse Rate 108 H 105 H 102 H Blood Pressure O2 Sat by Pulse 96 97 97 Oximetry 03/02/18 03/02/18 03/02/18 06:00 06:05 06:09 Pulse Rate 102 H 118 H 103 H Blood Pressure 122/78 O2 Sat by Pulse 98 99 Oximetry 03/02/18 03/02/18 03/02/18 06:10 06:15 06:20 Pulse Rate 101 H 120 H 102 H Blood Pressure O2 Sat by Pulse 98 97 97 Oximetry 03/02/18 03/02/18 03/02/18 06:25 06:30 06:35 Pulse Rate 103 H 94 H 96 H Blood Pressure O2 Sat by Pulse 99 99 97 Oximetry 03/02/18 03/02/18 03/02/18 06:40 06:45 06:46 Pulse Rate 99 H 109 H Blood Pressure O2 Sat by Pulse 98 90 98 Oximetry 03/02/18 03/02/18 03/02/18 06:51 06:56 07:01 Pulse Rate 98 H 98 H 105 H Blood Pressure O2 Sat by Pulse 99 98 97 Oximetry 03/02/18 03/02/18 03/02/18 07:06 07:09 07:12 Pulse Rate 97 H 96 H 100 H Blood Pressure 125/83 O2 Sat by Pulse 97 99 Oximetry 03/02/18 03/02/18 03/02/18 07:17 07:22 07:27 Pulse Rate 110 H 108 H 114 H Blood Pressure O2 Sat by Pulse 99 100 100 Oximetry 03/02/18 03/02/18 03/02/18 07:30 07:32 07:37 Pulse Rate 62 115 H 102 H Blood Pressure O2 Sat by Pulse 87 97 98 Oximetry 03/02/18 03/02/18 03/02/18 07:43 07:44 07:49 Pulse Rate 104 H Blood Pressure O2 Sat by Pulse 80 L 91 93 Oximetry 03/02/18 03/02/18 03/02/18 08:01 08:06 08:09 Pulse Rate 71 113 H Blood Pressure O2 Sat by Pulse 87 0 L 100 Oximetry 03/02/18 03/02/18 03/02/18 08:14 08:22 08:39 Pulse Rate 123 H 114 H Blood Pressure O2 Sat by Pulse 100 0 L 79 L Oximetry 03/02/18 03/02/18 03/02/18 08:53 08:58 09:10 Pulse Rate 96 H Blood Pressure 130/78 O2 Sat by Pulse 80 L 76 L 76 L Oximetry 03/02/18 03/02/18 03/02/18 09:11 09:16 09:21 Pulse Rate 99 H 100 H 100 H Blood Pressure O2 Sat by Pulse 72 L 97 98 Oximetry 03/02/18 03/02/18 03/02/18 09:26 09:30 09:31 Pulse Rate 106 H 100 H 97 H Blood Pressure O2 Sat by Pulse 98 94 96 Oximetry 03/02/18 03/02/18 03/02/18 09:36 09:41 09:46 Pulse Rate 101 H 100 H 110 H Blood Pressure O2 Sat by Pulse 96 96 99 Oximetry 03/02/18 03/02/18 03/02/18 09:51 09:52 09:56 Pulse Rate 113 H 104 H 116 H Blood Pressure O2 Sat by Pulse 96 92 98 Oximetry 03/02/18 03/02/18 03/02/18 10:00 10:01 10:05 Pulse Rate 105 H 105 H 115 H Blood Pressure O2 Sat by Pulse 93 94 93 Oximetry 03/02/18 03/02/18 03/02/18 10:06 10:10 10:11 Pulse Rate 107 H 121 H 119 H Blood Pressure 161/99 O2 Sat by Pulse 97 85 Oximetry 03/02/18 03/02/18 03/02/18 10:16 10:18 10:21 Pulse Rate 114 H 113 H 105 H Blood Pressure O2 Sat by Pulse 97 94 95 Oximetry 03/02/18 03/02/18 03/02/18 10:24 10:26 10:29 Pulse Rate 107 H 102 H 108 H Blood Pressure O2 Sat by Pulse 94 96 92 Oximetry 03/02/18 03/02/18 03/02/18 10:31 10:36 10:37 Pulse Rate 114 H 99 H 102 H Blood Pressure O2 Sat by Pulse 96 94 93 Oximetry 03/02/18 03/02/18 03/02/18 10:41 10:46 10:50 Pulse Rate 107 H 106 H Blood Pressure O2 Sat by Pulse 99 98 83 L Oximetry 03/02/18 03/02/18 03/02/18 10:52 10:57 10:58 Pulse Rate 102 H 97 H 105 H Blood Pressure 129/82 O2 Sat by Pulse 99 96 87 Oximetry 03/02/18 03/02/18 03/02/18 11:02 11:05 11:07 Pulse Rate 98 H 107 H 95 H Blood Pressure O2 Sat by Pulse 94 94 98 Oximetry 03/02/18 03/02/18 03/02/18 11:09 11:12 11:17 Pulse Rate 96 H 94 H 91 H Blood Pressure 136/87 O2 Sat by Pulse 98 98 Oximetry 03/02/18 03/02/18 03/02/18 11:22 11:27 11:32 Pulse Rate 93 H 92 H 90 Blood Pressure O2 Sat by Pulse 99 98 99 Oximetry 03/02/18 03/02/18 03/02/18 11:37 11:42 11:47 Pulse Rate 89 89 87 Blood Pressure O2 Sat by Pulse 99 99 99 Oximetry 03/02/18 03/02/18 03/02/18 11:52 11:57 12:02 Pulse Rate 87 86 106 H Blood Pressure O2 Sat by Pulse 99 99 100 Oximetry 03/02/18 03/02/18 03/02/18 12:06 12:10 12:12 Pulse Rate 80 99 H Blood Pressure 160/99 O2 Sat by Pulse 83 L 80 L Oximetry 03/02/18 03/02/18 03/02/18 12:19 12:20 12:25 Pulse Rate 108 H 105 H Blood Pressure O2 Sat by Pulse 78 L 100 100 Oximetry 03/02/18 03/02/18 03/02/18 12:30 12:35 12:36 Pulse Rate 107 H 109 H Blood Pressure O2 Sat by Pulse 100 98 87 Oximetry 03/02/18 03/02/18 03/02/18 12:44 12:48 12:49 Pulse Rate 56 L Blood Pressure O2 Sat by Pulse 80 L 81 L 80 L Oximetry 03/02/18 03/02/18 03/02/18 12:58 12:59 13:04 Pulse Rate 25 L 39 L 110 H Blood Pressure O2 Sat by Pulse 0 L 0 L 100 Oximetry 03/02/18 03/02/18 03/02/18 13:09 13:10 13:14 Pulse Rate 98 H 106 H 96 H Blood Pressure 150/92 O2 Sat by Pulse 99 90 99 Oximetry 03/02/18 03/02/18 03/02/18 13:19 13:24 13:29 Pulse Rate 92 H 93 H 91 H Blood Pressure 138/92 O2 Sat by Pulse 97 98 97 Oximetry 03/02/18 03/02/18 03/02/18 13:34 13:35 13:39 Pulse Rate 103 H 56 L 100 H Blood Pressure O2 Sat by Pulse 99 93 100 Oximetry 03/02/18 03/02/18 03/02/18 13:44 13:49 13:54 Pulse Rate 95 H 88 104 H Blood Pressure O2 Sat by Pulse 100 99 99 Oximetry 03/02/18 03/02/18 03/02/18 13:59 14:04 14:09 Pulse Rate 90 100 H 92 H Blood Pressure 148/94 O2 Sat by Pulse 97 100 97 Oximetry 03/02/18 03/02/18 03/02/18 14:14 14:19 14:25 Pulse Rate 100 H 99 H 67 Blood Pressure O2 Sat by Pulse 98 99 82 L Oximetry 03/02/18 03/02/18 03/02/18 14:26 14:31 14:36 Pulse Rate 94 H 98 H 133 H Blood Pressure O2 Sat by Pulse 99 100 97 Oximetry 03/02/18 03/02/18 03/02/18 14:42 14:49 14:52 Pulse Rate 240 H 95 H Blood Pressure O2 Sat by Pulse 0 L 80 L 99 Oximetry 03/02/18 03/02/18 03/02/18 14:54 14:58 14:59 Pulse Rate 68 68 Blood Pressure O2 Sat by Pulse 79 L 82 L 80 L Oximetry 03/02/18 03/02/18 03/02/18 15:03 15:08 15:09 Pulse Rate 86 84 87 Blood Pressure 141/86 O2 Sat by Pulse 99 99 Oximetry 03/02/18 03/02/18 15:13 15:15 Pulse Rate 81 64 Blood Pressure O2 Sat by Pulse 96 94 Oximetry - Exam Breasts: deferred Abdomen: Present: soft, tenderness (mildly) Uterine Contraction Pattern: Irregular - Labs Labs: Abnormal Labs 02/26/18 02/26/18 02/26/18 17:40 19:24 20:15 WBC 13.9 H RBC 3.44 L Hgb 8.4 L Hct 26.7 L MCV 78 L MCH 24 L RDW 16.1 H Lymph % (Auto) 8.8 L Seg Neutrophils % 85.4 H Seg Neuts % (Manual) Lymphocytes % (Manual) Nucleated RBC % Seg Neutrophils # 11.9 H Seg Neutrophils # Man Monocytes # (Manual) Sodium 132 L Chloride 97.1 L Carbon Dioxide 15 L Glucose Uric Acid Calcium Magnesium AST 355 H ALT 267 H Alkaline Phosphatase 192 H Lactate Dehydrogenase Total Protein Albumin 3.3 L Amylase Urine WBC (Auto) 7.0 H Ur Total Protein 24 Hr Urine Total Protein Acetaminophen 02/26/18 02/26/18 02/27/18 21:29 21:45 09:30 WBC RBC Hgb Hct MCV MCH RDW Lymph % (Auto) Seg Neutrophils % Seg Neuts % (Manual) Lymphocytes % (Manual) Nucleated RBC % Seg Neutrophils # Seg Neutrophils # Man Monocytes # (Manual) Sodium 136 L Chloride Carbon Dioxide 17 L Glucose Uric Acid Calcium 8.3 L Magnesium AST 294 H ALT 239 H Alkaline Phosphatase 172 H Lactate Dehydrogenase Total Protein 6.0 L Albumin 2.9 L Amylase 23 L Urine WBC (Auto) Ur Total Protein 24 Hr Urine Total Protein Acetaminophen < 5.0 L 02/27/18 02/28/18 02/28/18 21:00 09:44 11:29 WBC 27.2 H RBC 3.08 L Hgb 7.7 L Hct 23.7 L MCV 77 L MCH 25 L RDW 16.5 H Lymph % (Auto) Seg Neutrophils % Seg Neuts % (Manual) Lymphocytes % (Manual) Nucleated RBC % Seg Neutrophils # Seg Neutrophils # Man Monocytes # (Manual) Sodium 131 L Chloride 97.5 L Carbon Dioxide 15 L Glucose 121 H Uric Acid Calcium 7.9 L Magnesium AST 424 H ALT 312 H Alkaline Phosphatase 189 H Lactate Dehydrogenase Total Protein 5.9 L Albumin 2.8 L Amylase Urine WBC (Auto) Ur Total Protein 24 Hr 324.50 H Urine Total Protein 59 H Acetaminophen 03/01/18 03/01/18 03/01/18 00:01 05:47 05:47 WBC RBC Hgb Hct MCV MCH RDW Lymph % (Auto) Seg Neutrophils % Seg Neuts % (Manual) Lymphocytes % (Manual) Nucleated RBC % Seg Neutrophils # Seg Neutrophils # Man Monocytes # (Manual) Sodium Chloride Carbon Dioxide 19 L Glucose Uric Acid Calcium 8.1 L Magnesium AST 394 H ALT 307 H Alkaline Phosphatase Lactate Dehydrogenase Total Protein Albumin Amylase 13 L Urine WBC (Auto) Ur Total Protein 24 Hr 323.00 H Urine Total Protein 17 H Acetaminophen 03/01/18 03/02/18 03/02/18 09:40 05:36 05:36 WBC 21.6 H 17.3 H RBC 3.13 L 3.09 L Hgb 7.7 L 7.6 L Hct 24.9 L 24.5 L MCV MCH 25 L 24 L RDW 16.6 H 16.9 H Lymph % (Auto) Seg Neutrophils % Seg Neuts % (Manual) 79.0 H Lymphocytes % (Manual) 10.0 L Nucleated RBC % 9.0 H Seg Neutrophils # Seg Neutrophils # Man 16.7 H Monocytes # (Manual) 1.1 H Sodium Chloride Carbon Dioxide Glucose Uric Acid 9.0 H Calcium Magnesium AST 576 H ALT 386 H Alkaline Phosphatase Lactate Dehydrogenase 924 H Total Protein Albumin Amylase Urine WBC (Auto) Ur Total Protein 24 Hr Urine Total Protein Acetaminophen 03/02/18 03/02/18 05:36 12:39 WBC RBC Hgb Hct MCV MCH RDW Lymph % (Auto) Seg Neutrophils % Seg Neuts % (Manual) Lymphocytes % (Manual) Nucleated RBC % Seg Neutrophils # Seg Neutrophils # Man Monocytes # (Manual) Sodium Chloride Carbon Dioxide Glucose Uric Acid Calcium Magnesium 6.70 H 8.20 H AST ALT Alkaline Phosphatase Lactate Dehydrogenase Total Protein Albumin Amylase Urine WBC (Auto) Ur Total Protein 24 Hr Urine Total Protein Acetaminophen Laboratory Results - last 24 hr 03/02/18 03/02/18 03/02/18 05:36 05:36 05:36 WBC 17.3 H RBC 3.09 L Hgb 7.6 L Hct 24.5 L MCV 79 MCH 24 L MCHC 31 RDW 16.9 H Plt Count 214 Creatinine 0.9 Estimated GFR > 60 Uric Acid 9.0 H Magnesium 6.70 H AST 576 H ALT 386 H Lactate Dehydrogenase 924 H 03/02/18 12:39 WBC RBC Hgb Hct MCV MCH MCHC RDW Plt Count Creatinine Estimated GFR Uric Acid Magnesium 8.20 H AST ALT Lactate Dehydrogenase
--- NOTE | 2018-03-02 17:51 | Event Note ---
Date: 03/02/18 patient's BP stable still with heartburn and some nausea Denies VERGARA or visual changes. Will give Protonix and check Mg level.
[2018-03-02] MEDS ORDERED: PROTONIX IV SCH (18:00)
[2018-03-02] MEDS: CEPACOL X STRENGTH MM PRN ×2 (21:03→22:49)
[2018-03-03] MEDS: LACTATED RINGERS 1,000 ML IV SCH ×3 (03:01→17:56)
[2018-03-03] MEDS: ZOFRAN IV PRN (06:35)
[2018-03-03 07:13] LABS: Alanine Aminotransferase 358 units/L (7-56)
--- NOTE | 2018-03-03 08:52 | Progress Note ---
Assessment and Plan - Patient Problems (1) 35 weeks gestation of Current Visit: Yes Status: Acute Plan to address problem: Discussed with NICU and states they are available for delivery on this today. (2) Pre-eclampsia Current Visit: Yes Status: Acute Qualifiers: Trimester: third trimester Qualified Code(s): O14.93 - Unspecified pre- eclampsia, third trimester Plan to address problem: Patient's blood pressures were mostly in acceptable range. Patient denies any headache or visual changes. Cervidil was removed earlier this morning. We'll start Pitocin this morning. Discussed with patient and significant other that the goal is to have delivery on today. If not progressing possible operative delivery due to either maternal or indications. All questions answered (3) Transaminitis Current Visit: Yes Status: Acute Plan to address problem: Levels are still elevated but improved. (4) Anemia affecting in third trimester Current Visit: Yes Status: Chronic (5) Hypermagnesemia Current Visit: Yes Status: Acute Plan to address problem: Levels much improved today. Subjective - Subjective Date of service: 03/03/18 Principal diagnosis: IUP@35 w 2d Patient reports: movement normal, contractions (very irregular), other ( patient states she feels better today and desires to have regular breakfast), no new complaints, no vaginal bleeding Objective - Vital Signs Vital Signs: Vital Signs - 12hr 03/02/18 03/02/18 03/02/18 20:57 21:05 21:10 Temperature Pulse Rate 102 H Blood Pressure 126/82 O2 Sat by Pulse 79 L 83 L Oximetry 03/02/18 03/02/18 03/02/18 21:11 21:16 21:39 Temperature Pulse Rate 78 59 L Blood Pressure O2 Sat by Pulse 88 93 80 L Oximetry 03/02/18 03/02/18 03/02/18 21:43 21:48 21:53 Temperature Pulse Rate 90 83 98 H Blood Pressure O2 Sat by Pulse 96 96 97 Oximetry 03/02/18 03/02/18 03/02/18 21:58 22:03 22:08 Temperature Pulse Rate 86 88 78 Blood Pressure O2 Sat by Pulse 97 96 97 Oximetry 03/02/18 03/02/18 03/02/18 22:10 22:13 22:18 Temperature Pulse Rate 86 107 H 103 H Blood Pressure O2 Sat by Pulse 83 L 97 98 Oximetry 03/02/18 03/02/18 03/02/18 22:23 22:28 22:33 Temperature Pulse Rate 85 89 86 Blood Pressure O2 Sat by Pulse 97 95 96 Oximetry 03/02/18 03/02/18 03/02/18 22:38 22:43 22:48 Temperature Pulse Rate 83 85 93 H Blood Pressure O2 Sat by Pulse 97 96 96 Oximetry 03/02/18 03/02/18 03/02/18 22:53 22:58 23:03 Temperature Pulse Rate 93 H 99 H 86 Blood Pressure O2 Sat by Pulse 96 97 96 Oximetry 03/02/18 03/02/18 03/02/18 23:08 23:09 23:13 Temperature Pulse Rate 86 86 84 Blood Pressure 132/83 O2 Sat by Pulse 96 97 Oximetry 03/02/18 03/02/18 03/02/18 23:18 23:23 23:28 Temperature Pulse Rate 88 82 88 Blood Pressure O2 Sat by Pulse 97 97 96 Oximetry 03/02/18 03/02/18 03/02/18 23:33 23:38 23:43 Temperature Pulse Rate 86 92 H 84 Blood Pressure O2 Sat by Pulse 95 96 96 Oximetry 03/02/18 03/02/18 03/02/18 23:48 23:53 23:58 Temperature Pulse Rate 90 86 88 Blood Pressure O2 Sat by Pulse 96 96 96 Oximetry 03/03/18 03/03/18 03/03/18 00:03 00:08 00:09 Temperature Pulse Rate 91 H 102 H 100 H Blood Pressure 127/82 O2 Sat by Pulse 96 96 Oximetry 03/03/18 03/03/18 03/03/18 00:14 00:15 00:20 Temperature Pulse Rate 95 H 89 Blood Pressure O2 Sat by Pulse 71 L 95 96 Oximetry 03/03/18 03/03/18 03/03/18 00:25 00:30 00:35 Temperature Pulse Rate 89 87 89 Blood Pressure O2 Sat by Pulse 96 96 96 Oximetry 03/03/18 03/03/18 03/03/18 00:40 00:45 00:50 Temperature Pulse Rate 86 90 93 H Blood Pressure O2 Sat by Pulse 96 96 97 Oximetry 03/03/18 03/03/18 03/03/18 00:55 01:02 01:09 Temperature Pulse Rate 84 93 H Blood Pressure 129/74 O2 Sat by Pulse 97 83 L Oximetry 03/03/18 03/03/18 03/03/18 01:15 01:31 01:41 Temperature Pulse Rate 61 88 64 Blood Pressure O2 Sat by Pulse 79 L 72 L 71 L Oximetry 03/03/18 03/03/18 03/03/18 01:50 01:57 02:03 Temperature Pulse Rate 77 57 L Blood Pressure O2 Sat by Pulse 79 L 84 0 L Oximetry 03/03/18 03/03/18 03/03/18 02:08 02:09 02:11 Temperature Pulse Rate 115 H 55 L Blood Pressure 141/76 O2 Sat by Pulse 82 L 81 L Oximetry 03/03/18 03/03/18 03/03/18 02:13 02:18 02:19 Temperature Pulse Rate 57 L 79 Blood Pressure O2 Sat by Pulse 90 80 L 80 L Oximetry 03/03/18 03/03/18 03/03/18 02:25 02:30 02:32 Temperature Pulse Rate 95 H 71 Blood Pressure O2 Sat by Pulse 0 L 77 L 89 Oximetry 03/03/18 03/03/18 03/03/18 02:35 02:48 02:53 Temperature Pulse Rate 55 L 32 L 84 Blood Pressure O2 Sat by Pulse 98 78 L 74 L Oximetry 03/03/18 03/03/18 03/03/18 02:54 02:59 03:05 Temperature Pulse Rate 63 56 L 91 H Blood Pressure O2 Sat by Pulse 87 88 84 Oximetry 03/03/18 03/03/18 03/03/18 03:10 03:14 04:28 Temperature Pulse Rate 86 75 Blood Pressure 97/65 O2 Sat by Pulse 0 L 90 Oximetry 03/03/18 03/03/18 03/03/18 04:30 04:31 04:33 Temperature 98.6 F Pulse Rate 81 74 Blood Pressure 119/68 O2 Sat by Pulse 99 Oximetry 03/03/18 03/03/18 03/03/18 04:36 04:41 04:46 Temperature Pulse Rate 87 73 73 Blood Pressure O2 Sat by Pulse 98 99 98 Oximetry 03/03/18 03/03/18 03/03/18 04:51 04:56 05:01 Temperature Pulse Rate 72 72 68 Blood Pressure O2 Sat by Pulse 98 98 98 Oximetry 03/03/18 03/03/18 03/03/18 05:06 05:10 05:11 Temperature Pulse Rate 69 78 82 Blood Pressure 121/76 O2 Sat by Pulse 98 97 Oximetry 03/03/18 03/03/18 03/03/18 05:16 05:21 05:26 Temperature Pulse Rate 74 72 75 Blood Pressure O2 Sat by Pulse 98 98 97 Oximetry 03/03/18 03/03/18 03/03/18 05:31 05:36 05:41 Temperature Pulse Rate 73 82 75 Blood Pressure O2 Sat by Pulse 98 98 98 Oximetry 03/03/18 03/03/18 03/03/18 05:46 05:51 05:56 Temperature Pulse Rate 72 73 81 Blood Pressure O2 Sat by Pulse 98 98 98 Oximetry 03/03/18 03/03/18 03/03/18 06:01 06:06 06:09 Temperature Pulse Rate 90 88 79 Blood Pressure 120/70 O2 Sat by Pulse 98 99 Oximetry 03/03/18 03/03/18 03/03/18 06:11 06:16 06:21 Temperature Pulse Rate 73 75 70 Blood Pressure O2 Sat by Pulse 99 99 99 Oximetry 03/03/18 03/03/18 03/03/18 06:26 06:31 06:36 Temperature Pulse Rate 73 82 72 Blood Pressure O2 Sat by Pulse 99 98 98 Oximetry 03/03/18 03/03/18 03/03/18 07:09 07:42 07:43 Temperature Pulse Rate 90 99 H 85 Blood Pressure 144/91 140/84 O2 Sat by Pulse 79 L 98 Oximetry 03/03/18 03/03/18 03/03/18 07:48 07:53 07:58 Temperature Pulse Rate 91 H 78 78 Blood Pressure O2 Sat by Pulse 99 99 99 Oximetry 03/03/18 03/03/18 03/03/18 08:03 08:08 08:09 Temperature Pulse Rate 78 78 87 Blood Pressure 124/85 O2 Sat by Pulse 98 98 Oximetry 03/03/18 03/03/18 03/03/18 08:13 08:18 08:23 Temperature Pulse Rate 89 80 78 Blood Pressure O2 Sat by Pulse 98 99 98 Oximetry 03/03/18 03/03/18 03/03/18 08:28 08:33 08:38 Temperature Pulse Rate 102 H 81 85 Blood Pressure O2 Sat by Pulse 97 98 98 Oximetry 03/03/18 03/03/18 08:43 08:48 Temperature Pulse Rate 75 99 H Blood Pressure O2 Sat by Pulse 98 98 Oximetry - Exam Breasts: deferred Cardiovascular: Regular rate Lungs: Normal air movement Abdomen: Present: normal appearance, soft FHR: category 2 - Labs Labs: Abnormal Labs 02/26/18 02/26/18 02/26/18 17:40 19:24 20:15 WBC 13.9 H RBC 3.44 L Hgb 8.4 L Hct 26.7 L MCV 78 L MCH 24 L RDW 16.1 H Lymph % (Auto) 8.8 L Seg Neutrophils % 85.4 H Seg Neuts % (Manual) Lymphocytes % (Manual) Nucleated RBC % Seg Neutrophils # 11.9 H Seg Neutrophils # Man Monocytes # (Manual) Sodium 132 L Chloride 97.1 L Carbon Dioxide 15 L Glucose Uric Acid Calcium Magnesium AST 355 H ALT 267 H Alkaline Phosphatase 192 H Lactate Dehydrogenase Total Protein Albumin 3.3 L Amylase Urine WBC (Auto) 7.0 H Ur Total Protein 24 Hr Urine Total Protein Acetaminophen 02/26/18 02/26/18 02/27/18 21:29 21:45 09:30 WBC RBC Hgb Hct MCV MCH RDW Lymph % (Auto) Seg Neutrophils % Seg Neuts % (Manual) Lymphocytes % (Manual) Nucleated RBC % Seg Neutrophils # Seg Neutrophils # Man Monocytes # (Manual) Sodium 136 L Chloride Carbon Dioxide 17 L Glucose Uric Acid Calcium 8.3 L Magnesium AST 294 H ALT 239 H Alkaline Phosphatase 172 H Lactate Dehydrogenase Total Protein 6.0 L Albumin 2.9 L Amylase 23 L Urine WBC (Auto) Ur Total Protein 24 Hr Urine Total Protein Acetaminophen < 5.0 L 02/27/18 02/28/18 02/28/18 21:00 09:44 11:29 WBC 27.2 H RBC 3.08 L Hgb 7.7 L Hct 23.7 L MCV 77 L MCH 25 L RDW 16.5 H Lymph % (Auto) Seg Neutrophils % Seg Neuts % (Manual) Lymphocytes % (Manual) Nucleated RBC % Seg Neutrophils # Seg Neutrophils # Man Monocytes # (Manual) Sodium 131 L Chloride 97.5 L Carbon Dioxide 15 L Glucose 121 H Uric Acid Calcium 7.9 L Magnesium AST 424 H ALT 312 H Alkaline Phosphatase 189 H Lactate Dehydrogenase Total Protein 5.9 L Albumin 2.8 L Amylase Urine WBC (Auto) Ur Total Protein 24 Hr 324.50 H Urine Total Protein 59 H Acetaminophen 03/01/18 03/01/18 03/01/18 00:01 05:47 05:47 WBC RBC Hgb Hct MCV MCH RDW Lymph % (Auto) Seg Neutrophils % Seg Neuts % (Manual) Lymphocytes % (Manual) Nucleated RBC % Seg Neutrophils # Seg Neutrophils # Man Monocytes # (Manual) Sodium Chloride Carbon Dioxide 19 L Glucose Uric Acid Calcium 8.1 L Magnesium AST 394 H ALT 307 H Alkaline Phosphatase Lactate Dehydrogenase Total Protein Albumin Amylase 13 L Urine WBC (Auto) Ur Total Protein 24 Hr 323.00 H Urine Total Protein 17 H Acetaminophen 03/01/18 03/02/18 03/02/18 09:40 05:36 05:36 WBC 21.6 H 17.3 H RBC 3.13 L 3.09 L Hgb 7.7 L 7.6 L Hct 24.9 L 24.5 L MCV MCH 25 L 24 L RDW 16.6 H 16.9 H Lymph % (Auto) Seg Neutrophils % Seg Neuts % (Manual) 79.0 H Lymphocytes % (Manual) 10.0 L Nucleated RBC % 9.0 H Seg Neutrophils # Seg Neutrophils # Man 16.7 H Monocytes # (Manual) 1.1 H Sodium Chloride Carbon Dioxide Glucose Uric Acid 9.0 H Calcium Magnesium AST 576 H ALT 386 H Alkaline Phosphatase Lactate Dehydrogenase 924 H Total Protein Albumin Amylase Urine WBC (Auto) Ur Total Protein 24 Hr Urine Total Protein Acetaminophen 03/02/18 03/02/18 03/02/18 05:36 12:39 17:17 WBC RBC Hgb Hct MCV MCH RDW Lymph % (Auto) Seg Neutrophils % Seg Neuts % (Manual) Lymphocytes % (Manual) Nucleated RBC % Seg Neutrophils # Seg Neutrophils # Man Monocytes # (Manual) Sodium Chloride Carbon Dioxide Glucose Uric Acid Calcium Magnesium 6.70 H 8.20 H 6.70 H AST ALT Alkaline Phosphatase Lactate Dehydrogenase Total Protein Albumin Amylase Urine WBC (Auto) Ur Total Protein 24 Hr Urine Total Protein Acetaminophen 03/03/18 03/03/18 03/03/18 00:55 06:30 06:30 WBC RBC Hgb Hct MCV MCH RDW Lymph % (Auto) Seg Neutrophils % Seg Neuts % (Manual) Lymphocytes % (Manual) Nucleated RBC % Seg Neutrophils # Seg Neutrophils # Man Monocytes # (Manual) Sodium Chloride Carbon Dioxide Glucose Uric Acid Calcium Magnesium 6.20 H 6.40 H AST 480 H ALT 358 H Alkaline Phosphatase Lactate Dehydrogenase Total Protein Albumin Amylase Urine WBC (Auto) Ur Total Protein 24 Hr Urine Total Protein Acetaminophen Laboratory Results - last 24 hr 03/02/18 03/02/18 03/03/18 12:39 17:17 00:55 Magnesium 8.20 H 6.70 H 6.20 H AST ALT 03/03/18 03/03/18 06:30 06:30 Magnesium 6.40 H AST 480 H ALT 358 H
[2018-03-03] MEDS ORDERED: PITOCin/NS 30 UNIT/500ML 30,000 MILLIUNITS/500 ML BAG IV ONE (08:56)
[2018-03-03 09:38] LABS: Hematocrit 23.7 % (30.3-42.9); Hemoglobin 7.4 gm/dl (10.1-14.3); Mean Corpuscular HGB Conc 31 % (30-34); Mean Corpuscular Hemoglobin 24 pg (28-32); Mean Corpuscular Volume 78 fl (79-97); Mean Platelet Volume 9.9 fl (6-12); Platelet Count 202 K/mm3 (140-440); Red Blood Count 3.03 M/mm3 (3.65-5.03); Red Cell Distribution Width 16.8 % (13.2-15.2)
[2018-03-03 09:50] LABS: BUN/Creatinine Ratio 18; Blood Urea Nitrogen 16 mg/dL (7-17); Hemolysis Index 4
[2018-03-03 12:23] LABS: Basophils % (Manual) 0 % (0.0-1.8); Eosinophils % (Manual) 0 % (0.0-4.3); Total Cells Counted 100
[2018-03-03 12:24] LABS: Anisocytosis 1+; Helmet Cells Few; Hypochromasia 1+; Ovalocytes 1+; Poikilocytosis 1+
--- NOTE | 2018-03-03 12:26 | Event Note ---
Date: 03/03/18 Called RN report pitocin @ 16 mu/min "good Tracing" irregular mild contractions. Will continue pitocin per protocol. Continue to monitor closely
--- NOTE | 2018-03-03 17:24 | Event Note ---
Date: 03/03/18 Patient receiving Pitocin at 24 mU/m. Cervical exam revealed really no changes cervix 1 cm about percent effacement and -3 station. Patient blood pressures ranging from 130s to 160s over 80s to 90s. Patient is developing some edema including vulva edema. Patient without change in cervix and Pitocin remote from delivery and with her diagnoses severe preeclampsia will move to operative delivery. Patient informed the risks of the surgery include bleeding possibly bleeding heavy enough to require blood transfusion, infection possible damage to bowel bladder ureter. All questions answered. Patient agrees to proceed
[2018-03-03] MEDS: PEPCID IV SCH (17:57)
[2018-03-03] MEDS ORDERED: BICITRA PO ONE (18:00)
[2018-03-03] MEDS ORDERED: PITOCin/NS 20 UNIT/1000ML DRIP 20 UNITS/1,000 ML BAG IV SCH ×2 (18:00→20:00)
[2018-03-03] MEDS ORDERED: REGLAN IV ONE (18:00)
[2018-03-03] MEDS ORDERED: ANCEF/STERILE WATER 2 GM/20 ML 2 GM/20 ML SYRINGE IV NR (18:00)
[2018-03-03] MEDS ORDERED: SUBLIMAZE ONE (18:20)
[2018-03-03] MEDS ORDERED: NACL 0.9% IR ONE (18:30)
[2018-03-03] MEDS ORDERED: WATER FOR IRRIG STERILE IR ONE (18:30)
[2018-03-03] MEDS ORDERED: NEO SYNEPHRINE/NS Syringe(OR USE) IV ONE (18:48)
[2018-03-03] MEDS ORDERED: ZOFRAN ONE (18:49)
[2018-03-03] MEDS ORDERED: MORPHINE ONE (19:18)
[2018-03-03] MEDS ORDERED: NORCO 5/325 PO PRN (19:23)
[2018-03-03] MEDS ORDERED: TUCKS PAD TP PRN (19:23)
[2018-03-03] MEDS ORDERED: LANSINOH TP PRN (19:23)
[2018-03-03] MEDS ORDERED: NARCAN 0.4 MG/1 ML IV PRN (19:23)
--- NOTE | 2018-03-03 19:42 | Operative Report ---
Operative Report Operative Report: Date of procedure: 06/03/2018 Pre-operative diagnosis: at 35 weeks, failed labor induction, elevated transaminases, severe preeclampsia Post-operative diagnosis: Same Procedure name(s): Primary low transverse section Surgeon: Wilian Atwood MD Bricklayer Sewer: HEATHER Anesthesia: Spinal EBL: 500 mL Complications: None Findings: Normal uterus and tubes and ovaries bilaterally male weight 5 lbs. 4 oz. Apgars 8 at 1 minute and 9 at 5 minutes Specimen(s): Placenta Procedure: The patient was brought to the operating room. A spinal was placed without any complications. She was then placed in left lateral tilt. Prepped and draped in the usual sterile manner. After testing for adequate anesthesia level, a Pfannenstiel incision was made. This incision was taken down to the fascia. The fascia was then nicked in the midline. This incision was extended out laterally with Garcias scissors. The fascia was then sharply and bluntly from the underlying rectus muscles. The rectus muscles were bluntly and sharply . The peritoneum was then entered with the tape sewing machine operator's fingers. This incision was spread vertically with care not to damage the bladder below. The bladder flap was then formed sharply and bluntly with Metzenbaum scissors. The Antwon self-retaining tractor was then placed without any difficulty. A transverse incision was made in lower uterine segment. This incision was extended laterally with the operators fingers. The amniotic sac was then entered bluntly with the tape sewing machine operator's fingers. The infant was delivered from the vertex position. Bulb suction on the mother's abdomen. Cord was double clamped and cut. The was then passed to the nursery personnel who were in attendance. The above scores were given by the nursery personnel. The placenta was then bluntly removed. The uterus was then externalized and wiped clean the remaining products. The uterine incision was closed in layers. The first incision was closed in a locking manner using 0 Vicryl. This was followed by imbricating stitch also with 0 Vicryl. This closure was hemostatic. The bladder flap was copiously irrigated and found to be hemostatic. The pelvis was copiously irrigated and found to be hemostatic. The uterus was then placed back to the patient's abdomen. The retractors were removed. The rectus muscles were inspected and found to be hemostatic. The fascia was then closed in a running manner using 0 Vicryl. This incision was hemostatic irrigation Bovie. The skin was reapproximated with 4-0 Vicryl subcuticularly. The patient tolerated procedure well. Her urine was clear. The was admitted to the well baby nursery. The patient was accompanied to recovery room in good condition. Instrument count correct -3.
[2018-03-03] MEDS: MAGNESIUM SULFATE 40GM/1000ML 40 GM/1,000 ML BAG IV SCH (19:53)
[2018-03-03] MEDS ORDERED: D5LR 1,000 ML IV SCH (20:00)
[2018-03-03] MEDS ORDERED: MAGNESIUM SULFATE 40GM/1000ML 40 GM/1,000 ML BAG IV SCH (20:00)
[2018-03-03] MEDS ORDERED: SODIUM CHLORIDE FLUSH SYRINGE 10 ML IV NR (20:00)
[2018-03-03] MEDS ORDERED: ANCEF/NS 1 GM/50 ML 1 GM/50 ML BAG IV SCH (20:00)
[2018-03-03 20:03] LABS: BUN/Creatinine Ratio 18; Blood Urea Nitrogen 16 mg/dL (7-17); Calcium 6.6 mg/dL (8.4-10.2); Hemolysis Index 85
[2018-03-03] MEDS: MOTRIN PO PRN (21:57)
[2018-03-03] MEDS ORDERED: ceFAZolin 1 GM in NACL 0.9% 20 ML IV SCH (23:00)
[2018-03-04] MEDS: MOTRIN PO PRN ×3 (04:20→21:54)
[2018-03-04 06:21] LABS: Red Blood Count 1.75 M/mm3 (3.65-5.03)
[2018-03-04 06:22] LABS: Hemoglobin 4.5 gm/dl (10.1-14.3); Mean Corpuscular HGB Conc 34 % (30-34); Mean Corpuscular Hemoglobin 26 pg (28-32); Mean Corpuscular Volume 77 fl (79-97); Platelet Count 146 K/mm3 (140-440); Red Cell Distribution Width 16.4 % (13.2-15.2)
[2018-03-04 06:23] LABS: Hematocrit 13.5 % (30.3-42.9)
--- NOTE | 2018-03-04 06:27 | Progress Note ---
Assessment and Plan - Patient Problems (1) Pre-eclampsia Onset Date: ~03/04/18 Current Visit: Yes Status: Acute Qualifiers: Trimester: third trimester Qualified Code(s): O14.93 - Unspecified pre- eclampsia, third trimester Plan to address problem: Consulted with . MGSO4 off. Labs just drawn mag level ordered. Several visits into pt's room She states symptoms are decreasing. Vann draining clear yellow urine I&O; approx 400ml out since arriving to M/B @ 2130 Will continue close observation. BP 30 min after d/c MGSO4 pulse 91 Pt states she just feels tired with some pain @ the incision. Abdomen is soft FF Lochia small (2) delivery delivered Onset Date: ~03/04/18 Current Visit: Yes Status: Acute Plan to address problem: No further episodes of passing clots. FF below umb Lochia small Dressing D&I. Labs drawn. (3) Anemia Onset Date: ~03/04/18 Current Visit: Yes Status: Chronic Qualifiers: Anemia type: iron deficiency Iron deficiency anemia type: inadequate dietary iron intake Qualified Code(s): D50.8 - Other iron deficiency anemias Plan to address problem: Pt admitted with H&H of 06/16 chronic anemia. Pt states she is allergic to po iron. H&H this morning 4.5/13.5. Consulted with Transfusion ordered. Pt made aware of lab results and agrees to transfusion. (4) Hypokalemia Onset Date: ~03/04/18 Current Visit: Yes Status: Acute Plan to address problem: Calcium level 5.9 notified Will administer Calcium Gluconate 1GM IV now. Subjective - Subjective Date of service: 03/04/18 (Pt c/o ringing in her ears, blurred vision BP 86/50) Principal diagnosis: 12hr s/p section; Severe PreE Patient reports: voiding normally (vann), pain well controlled, other (Pt c/o ringing in her ears, blurred vision BP 86/50) [place]: doing well (breast feeding well) Objective - Vital Signs Latest vital signs: Vital Signs Temp Pulse Resp BP BP Pulse Ox 03/04/18 05:20 18 03/04/18 04:20 18 03/04/18 04:05 98.4 F 102 H 18 126/87 0518 02:05 98.2 F 106 H 18 137/76 0518 00:10 98.4 F 102 H 18 126/87 0518 22:57 18 03/03/18 21:57 20 18 21:30 97.9 F 89 18 146/92 0518 20:55 98.2 F 77 16 130/88 98 0518 20:43 15 03/03/18 20:40 84 19 134/82 97 0518 20:25 70 15 123/74 98 18 20:10 73 13 114/72 100 18 19:55 84 16 119/69 100 0518 19:40 68 13 110/62 100 0518 19:35 70 12 107/65 99 03/03/18 19:29 97.7 F 72 13 110/69 97 03/03/18 18:07 94 H 0 L 03/03/18 17:55 82 84 03/03/18 17:45 78 79 L 18 17:40 64 85 03/03/18 17:34 81 L 18 17:28 60 91 03/03/18 17:21 88 03/03/18 17:18 87 78 L 03/03/18 17:16 64 81 L 03/03/18 17:12 80 97 03/03/18 17:09 79 138/83 03/03/18 17:07 89 98 03/03/18 17:02 83 97 18 16:57 72 98 18 16:52 73 99 0518 16:47 75 98 18 16:42 85 99 18 16:37 74 99 0518 16:32 89 100 18 16:27 89 100 0518 16:22 75 100 0518 16:17 72 100 0518 16:12 77 100 0518 16:11 85 164/96 0518 16:07 79 99 0518 16:02 84 94 18 15:57 70 81 L 18 15:56 85 98 05/13/18 15:51 80 99 05/13/18 15:46 77 98 05/13/18 15:41 83 98 05/13/18 15:36 82 98 05/13/18 15:31 88 97 05/13/18 15:26 86 98 05/13/18 15:21 81 98 05/13/18 15:16 82 98 05/13/18 15:11 77 98 05/13/18 15:09 81 134/86 05/13/18 15:06 74 98 05/13/18 15:01 75 98 05/13/18 14:56 75 97 05/13/18 14:51 76 98 05/13/18 14:46 74 98 05/13/18 14:41 73 99 05/13/18 14:36 75 98 05/13/18 14:31 75 98 05/13/18 14:26 80 97 05/13/18 14:21 100 H 99 05/13/18 14:16 88 99 05/13/18 14:11 76 99 05/13/18 14:09 76 143/79 05/13/18 14:06 84 98 05/13/18 14:01 80 L 05/13/18 13:59 84 100 05/13/18 13:54 94 H 99 05/13/18 13:49 76 99 05/13/18 13:44 77 97 05/13/18 13:39 81 98 05/13/18 13:34 86 100 05/13/18 13:29 80 100 05/13/18 13:24 91 H 99 05/13/18 13:19 104 H 100 05/13/18 13:14 82 100 05/13/18 13:09 80 134/95 99 05/13/18 13:03 82 98 05/13/18 12:59 94 H 86 05/13/18 12:58 85 98 05/13/18 12:53 79 97 05/13/18 12:48 81 97 05/13/18 12:43 83 98 05/13/18 12:38 83 97 05/13/18 12:33 85 96 05/13/18 12:29 79 L 05/13/18 12:28 91 H 97 05/13/18 12:23 79 98 05/13/18 12:18 84 98 05/13/18 12:13 88 98 05/13/18 12:11 92 0518 12:10 90 140/81 0518 12:06 114 H 78 L 0518 12:05 69 79 L 0518 12:01 79 L 0518 11:59 81 97 0518 11:54 83 98 0518 11:49 77 99 05/18 11:44 82 99 0518 11:39 85 99 0518 11:34 77 99 0518 11:29 75 100 0518 11:24 93 H 98 0518 11:20 80 L 0518 11:19 78 98 0518 11:14 84 97 03/03/18 11:09 88 134/98 98 05 11:05 93 H 133/99 05 11:04 91 H 97 03/03/18 11:03 53 L 78 L 03/03/18 10:54 85 03/03/18 10:43 53 L 82 L 18 10:06 88 03/03/18 09:47 82 L 18 09:25 90 18 09:19 73 L 18 09:11 40 L 83 L 18 08:58 82 L 18 08:53 67 84 18 08:52 52 L 81 L 18 08:48 99 H 98 18 08:43 75 98 18 08:38 85 98 18 08:33 81 98 18 08:28 102 H 97 18 08:23 78 98 0518 08:18 80 99 0518 08:13 89 98 0518 08:09 87 124/85 0518 08:08 78 98 0518 08:03 78 98 0518 07:58 78 99 0518 07:53 78 99 0518 07:48 91 H 99 0518 07:43 85 98 0518 07:42 99 H 140/84 79 L 0518 07:09 90 144/91 05 06:36 72 98 03/03/18 06:31 82 98 03/03/18 06:26 73 99 Intake and Output 03/03/18 03/03/18 03/04/18 14:59 22:59 06:59 Intake Total 4760.074 4699.584 240 Output Total 600 1250 400 Balance 437.334 809.584 -160 Intake: IV 6728.498 8785.584 Lactated Ringers 1,000 ml 1000 376.667 @ 125 mls/hr IV DIRECT SOFIA Rx#:[id number] MAGNESIUM SULFATE 40GM/ 526.25 1000ML 40 gm In 1,000 ml @ 1 GM/HR 25 mls/hr IV DIRECT SOFIA Rx#:[id number] PITOCin/NS 30 UNIT/500ML 37.334 6.667 30,000 milliunits In 500 ml @ 4 MILLIUNITS/MIN 4 mls/hr IV DIRECT ONE Rx#:[id number] Oral 240 Output: Urine 600 1250 400 Indwelling Catheter 600 650 400 Uretheral (Vann) 300 Other: Total, Intake Amount 240 Total, Output Amount 200 200 200 Estimated Blood Loss 300 - Exam Breasts: Present: normal, Cardiovascular: Present: Regular rate Lungs: Present: Normal air movement Abdomen: Present: normal appearance, soft Uterus: Present: normal, fundal height below umbilicus Extremities: Present: normal Deep Tendon Reflex Grade: Normal +2 Incision: Present: normal, dry, intact, dressed - Labs Labs: Abnormal lab results 03/03/18 03/03/18 03/03/18 Range/Units 06:30 06:30 09:02 WBC (4.5-11.0) K/mm3 RBC (3.65-5.03) M/mm3 Hgb (10.1-14.3) gm/dl Hct (30.3-42.9) % MCV (79-97) fl MCH (28-32) pg RDW (13.2-15.2) % Nucleated RBC % (0.0-0.9) % Seg Neutrophils # Man (1.8-7.7) K/mm3 Lymphocytes # (Manual) (1.2-5.4) K/mm3 Sodium 136 L (137-145) mmol/L Carbon Dioxide (22-30) mmol/L Calcium 7.0 L (8.4-10.2) mg/dL Magnesium 6.40 H (1.7-2.3) mg/dL AST 480 H (5-40) units/L ALT 358 H (7-56) units/L 03/03/18 03/03/18 03/03/18 Range/Units 09:02 15:23 19:41 WBC 15.9 H (4.5-11.0) K/mm3 RBC 3.03 L (3.65-5.03) M/mm3 Hgb 7.4 L (10.1-14.3) gm/dl Hct 23.7 L (30.3-42.9) % MCV 78 L (79-97) fl MCH 24 L (28-32) pg RDW 16.8 H (13.2-15.2) % Nucleated RBC % 5.0 H (0.0-0.9) % Seg Neutrophils # Man 0.0 L (1.8-7.7) K/mm3 Lymphocytes # (Manual) 0.0 L (1.2-5.4) K/mm3 Sodium (137-145) mmol/L Carbon Dioxide (22-30) mmol/L Calcium (8.4-10.2) mg/dL Magnesium 6.70 H 6.50 H (1.7-2.3) mg/dL AST (5-40) units/L ALT (7-56) units/L 03/03/18 03/04/18 Range/Units 19:41 01:12 WBC (4.5-11.0) K/mm3 RBC (3.65-5.03) M/mm3 Hgb (10.1-14.3) gm/dl Hct (30.3-42.9) % MCV (79-97) fl MCH (28-32) pg RDW (13.2-15.2) % Nucleated RBC % (0.0-0.9) % Seg Neutrophils # Man (1.8-7.7) K/mm3 Lymphocytes # (Manual) (1.2-5.4) K/mm3 Sodium 133 L (137-145) mmol/L Carbon Dioxide 20 L (22-30) mmol/L Calcium 6.6 L (8.4-10.2) mg/dL Magnesium 6.30 H (1.7-2.3) mg/dL AST (5-40) units/L ALT (7-56) units/L
[2018-03-04] MEDS ORDERED: NACL 0.9% 500 ML 500 ML IV ONE (06:33)
[2018-03-04] MEDS ORDERED: TYLENOL PO ONE (06:35)
[2018-03-04] MEDS ORDERED: BENADRYL PO ONE (06:35)
[2018-03-04 06:38] LABS: BUN/Creatinine Ratio 17; Blood Urea Nitrogen 17 mg/dL (7-17); Hemolysis Index 84
[2018-03-04 06:39] LABS: Calcium 5.9 mg/dL (8.4-10.2)
[2018-03-04] MEDS ORDERED: CALCIUM GLUCONATE 1,000 MG in NACL 0.9% 100 ML IV ONE (06:49)
[2018-03-04] MEDS: NORCO 5/325 PO PRN ×3 (07:32→21:52)
[2018-03-04 09:07] LABS: Anisocytosis 1+; Band Neutrophils # (Manual) 1.8 K/mm3; Basophils % (Manual) 0 % (0.0-1.8); Eosinophils % (Manual) 0 % (0.0-4.3); Hypochromasia 1+; Myelocytes # (Manual) 0.2 K/mm3; Ovalocytes 1+; Total Cells Counted 100
[2018-03-04 09:08] LABS: Acanthocytes Few; Spherocytes Few
[2018-03-04] MEDS ORDERED: BENADRYL PO NR (09:30)
[2018-03-04] MEDS ORDERED: NACL 0.9% 500 ML 500 ML IV NR (11:30)
[2018-03-04] MEDS ORDERED: ceFAZolin 1 GM in NACL 0.9% 20 ML IV ONE (12:00)
--- NOTE | 2018-03-04 16:02 | Query-Infection ---
"Dear __Kristine Root_ Date:___03/04/2018_ Lockmaker/CDS: Harish_ Phone#:__[phone] Exercise your independent professional judgment when responding to this query. Questions asked do not imply a particular answer is desired or expected. We greatly appreciate your clarification on this issue. Clinical Documentation States Pt presents c/o intially having constipation stating she took meds and there after had diarrhea and abdominal cramping. She was noted to have findings on cath ua c/w UTI as well as regular uterine contractions with cx of 1cm as per triage nurse. H&P note (Dk Otero) on 02/26/2018. Assessment and Plan Patient Problems (1) 34 weeks gestation of (2) UTI (urinary tract infection) Current Visit: Yes Status: Acute Urinary tract infection type: acute cystitis Plan to address problem: -VS PYEOLO- IV ANTIBX FOR 24 TO 48HRS. PYELO LIKELY WITH THE CVA TENDERNESS Urine wbc: 7.0 on 02/26/18 at (17:40) 02/26/18 02/28/18 03/02/18 03/04/18 WBC count 13.9 27.2 17.3 17.1 Pulse Rate 111 134 105 102 Clinical findings show: (please check applicable parameters) Infection, known /suspected, with some of the following indicators; Specify the infection: 3 General parameters [ ] Fever (core temp >38.30C or 100.40F) [ ] Hypothermia (core temp <36C) [ X] Heart rate >90 bpm [ ] Tachypnea: >20 bpm or pCO2 < 32 mmHg [ ] Altered mental status [ ] Significant edema / +ve fluid balance (>20 ml/kg 24 h) [ ] Hyperglycemia (Bl. glucose >110 mg/dl) w/o diabetes Inflammatory parameters [X ] Leukocytosis (white blood cell count >12,000/l) [ ] Leukopenia (white blood cell count <4,000/l) [ ] Bandemia (immature WBC > 10%) [ ] Leucocyte Left Shift [ ] Plasma procalcitonin>2 SD above the normal value Hemodynamic and tissue perfusion parameters [ ] Arterial hypotension(SBP <90 mmHg, MAP <70 mmHg,or a SBP drop >40 mmHg in adults) [ ] Hyperlactatemia (>3 mmol/l) [ ] Anion Gap (> 11mEG/l) [ ] Decreased capillary refill or mottling Organ dysfunction parameters [ ] Arterial hypoxemia (PaO2/FIO2 <300) [ ] Creatinine increase =0.5 mg/dl [ ] Acute oliguria (urine output <0.5 ml | kg |h or 45 mM/l for at least 2 hrs) [ ] Coagulation abnormalities (INR >1.5 or activated partial thromboplastin time >60 s) [ ] Ileus (absent meño wel sounds) [ ] Thrombocytopenia (platelet count <100,000/l) [ ] Hyperbilirubinemia (plasma total bilirubin >4 mg/dl) According to the clinical indications above, can Bacteremia be further specified? If so, please indicate below and in your Progress Notes and/ or Discharge Summary. Indicate if the condition was present on admission. PHYSICIAN RESPONSE: [ ] Sepsis [ ] Severe Sepsis [ ] Septic Shock [ ] Septicemia [ ] Sepsis now resolved [ ] SIRS due to non-infectious cause with organ dysfunction [ ] SIRS due to non-infectious cause without organ dysfunction [ ] Other: [ ] Comment/Explanation: Present on Admission: [ y] Yes (Y) [ ] Clinically undeterminable (W) [ ] No (N) [ ] Ruled Out Please also document response in your Progress Notes and/or Discharge Summary and indicate if the condition was present on admission Notes: SIRS/ SIRS WITH ORGAN DYSFUNCTION Systemic inflammatory response syndrome (SIRS) generally refers to the systemic response to trauma/angulo or other insult such as Acute Myocardial Infarction, Acute Pancreatitis, and Major Surgery with symptoms including fever, tachycardia , tachypnea, and leukocytosis (1). BACTEREMIA Presence of viable bacteria in the circulating blood (2). This term is reserved for patients that do not manifest above SIRS response. SEPTICEMIA Generally refers to a systemic disease associated with the presence of pathological microorganisms or toxins in the blood, which can include bacteria, viruses, fungi or other organisms (1). SEPSIS Generally refers to SIRS due infection (1). SEVERE SEPSIS Generally refers to sepsis associated with acute organ dysfunction (1). SEPTIC SHOCK Generally refers to circulatory failure associated with severe sepsis (2), and defined as hypotension or hypoperfusion despite adequate fluid resuscitation (1 hour) (3). REFERENCES: 1. [place] [employer]/Society of Critical Care Medicine Consensus Conference. Definitions for sepsis and organ failure and guidelines for the use of innovative therapies in sepsis. Critical Care Med 1992;20:864 - 74. 2. Vince lora MM, Cherelle MP, Ayaz POLO, Jaxson E, Esa D, Aaron D, Jericho J, [place] SM , Sebastian BAHENA, Valery G; International Sepsis Definitions Conference. 2001 SCCM/ESICM/ACCP/ATS/SIS International Sepsis Definitions Conference. Intensive Care Med. 2002 Apr;29(4):530-8. Epub 2002Jan 16. Review. PubMed PMID:[id number] 3. ICD-9-CM Official Guidelines for Coding and Reporting 4. Medscape Drugs, Diseases and Procedures references 5. [employer] Textbook of Internal Medicine. 18th Edition MTDD"
--- NOTE | 2018-03-04 19:26 | Event Note ---
Date: 03/04/18 Pt seen and evaluated. She has dependent edema in lower ext bilaterally and some edema of her hands. She states she feels fine and has no pain at this time. repeat h/h being drawn. IV was able to be restarted. Pt advised of the edema being a consequence of the pre E and the post op changes from the c/s. I stressed to family that edema would not necessarily cause her to have the ringing in her ears that she experienced earlier. She does not c/o of if at this time. Vitals are otherwise stable. Incision is dressed c/d/i. Will d/c vann after labs have been obtained. Cont' routine post op care at this time.
[2018-03-04 20:02] LABS: Hematocrit 27.7 % (30.3-42.9); Hemoglobin 8.9 gm/dl (10.1-14.3)
[2018-03-04 20:20] LABS: Albumin 1.8 g/dL (3.9-5); Calcium 6.1 mg/dL (8.4-10.2)
[2018-03-05] MEDS ORDERED: BOOSTRIX IM ONE (06:00)
--- NOTE | 2018-03-05 07:50 | Progress Note ---
Assessment and Plan A: 17y/o day 2 post op c/s w/ pre-eclampsia. patient sitting up on side of bed for AM care. no complaints this morning. pt states " I feel better today than I have in a while." Dressing removed - incision D&I. b/p's mostly 120-130/ 80-90's, afebrile. Encouraged shower and increased activity today. encouraged - discussed frequent feeding from breast will help encouraged milk production. post transfusion H&H 8.9/27.7. LFTs decreasing (AST 149/ ALT 135). P: Continue postop pathway, anticipate d/c home tomorrow if stable. - Patient Problems (1) delivery delivered Onset Date: ~03/04/18 Current Visit: Yes Status: Acute (2) Pre-eclampsia Onset Date: ~03/04/18 Current Visit: Yes Status: Acute Qualifiers: Trimester: third trimester Qualified Code(s): O14.93 - Unspecified pre- eclampsia, third trimester (3) Anemia Onset Date: ~03/04/18 Current Visit: Yes Status: Chronic Qualifiers: Anemia type: iron deficiency Iron deficiency anemia type: inadequate dietary iron intake Qualified Code(s): D50.8 - Other iron deficiency anemias Subjective - Subjective Date of service: 03/05/18 Principal diagnosis: postop day #2 s/p primary c/s, pre-e Patient reports: appetite normal, voiding normally, pain well controlled, flatus , ambulating normally, no dizzy ambulation, no nauseated : doing well, nursing well (breast and bottle feeding), bottle feeding Objective - Vital Signs Latest vital signs: Vital Signs Temp Pulse Resp BP BP Pulse Ox 03/05/18 05:27 97.6 F 75 18 136/90 03/05/18 01:19 98.2 F 74 18 123/83 03/04/18 20:50 98.1 F 72 18 136/95 03/04/18 15:28 98.4 F 73 20 131/88 03/04/18 14:58 98.5 F 85 20 145/102 03/04/18 14:28 98.8 F 80 20 128/87 03/04/18 14:13 98.5 F 78 20 129/89 03/04/18 14:05 98.8 F 82 20 142/97 03/04/18 13:59 20 03/04/18 13:58 20 03/04/18 10:35 98.4 F 77 20 130/88 03/04/18 10:07 98.3 F 85 20 135/83 03/04/18 09:52 98.0 F 90 20 125/80 03/04/18 09:48 98.3 F 83 20 126/82 03/04/18 09:15 98.3 F 81 20 117/76 03/04/18 08:42 98.4 F 86 20 128/74 03/04/18 08:27 98.3 F 86 20 128/74 03/04/18 08:10 99.0 F 79 20 114/77 03/04/18 08:03 99.2 F 83 20 114/77 94 Intake and Output 03/04/18 03/04/18 03/05/18 15:59 23:59 07:59 Intake Total 830 240 720 Output Total 300 500 400 Balance 530 -260 320 Intake: Oral 330 120 Intake, Free Water 120 720 Blood Product 500 Leukoreduced Red Blood 0 Cells Unit [id number] Leukoreduced Red Blood 250 Cells Unit [id number] Leukoreduced Red Blood 250 Cells Unit [id number] Output: Urine 300 500 400 Indwelling Catheter 300 500 Void 400 Other: Total, Intake Amount 120 120 Total, Output Amount 300 200 400 - Exam Breasts: Present: normal, Cardiovascular: Present: Regular rate Lungs: Present: Clear to auscultation, Normal air movement Abdomen: Present: normal appearance, soft Vulva: both: normal Uterus: Present: normal, firm, fundal height at umbilicus Extremities: Present: edema Incision: Present: normal, dry, intact - Labs Labs: Abnormal lab results 03/01/18 03/04/18 03/04/18 Range/Units 09:40 06:01 11:27 WBC 17.1 H (4.5-11.0) K/mm3 Hgb (10.1-14.3) gm/dl Hct (30.3-42.9) % Seg Neuts % (Manual) 72.0 H (40.0-70.0) % Lymphocytes % (Manual) 8.0 L (13.4-35.0) % Nucleated RBC % 9.0 H (0.0-0.9) % Seg Neutrophils # Man 12.6 H (1.8-7.7) K/mm3 Monocytes # (Manual) 1.1 H (0.0-0.8) K/mm3 Sodium (137-145) mmol/L BUN (7-17) mg/dL Calcium (8.4-10.2) mg/dL Total Bilirubin (0.1-1.2) mg/dL AST (5-40) units/L ALT (7-56) units/L Alkaline Phosphatase (35-129) units/L Total Protein (6.3-8.2) g/dL Albumin (3.9-5) g/dL Crossmatch See Detail See Detail 03/04/18 03/04/18 Range/Units 19:14 19:14 WBC (4.5-11.0) K/mm3 Hgb 8.9 L D (10.1-14.3) gm/dl Hct 27.7 L D (30.3-42.9) % Seg Neuts % (Manual) (40.0-70.0) % Lymphocytes % (Manual) (13.4-35.0) % Nucleated RBC % (0.0-0.9) % Seg Neutrophils # Man (1.8-7.7) K/mm3 Monocytes # (Manual) (0.0-0.8) K/mm3 Sodium 132 L (137-145) mmol/L BUN 20 H (7-17) mg/dL Calcium 6.1 L (8.4-10.2) mg/dL Total Bilirubin 1.30 H (0.1-1.2) mg/dL AST 149 H (5-40) units/L ALT 135 H (7-56) units/L Alkaline Phosphatase 150 H (35-129) units/L Total Protein 3.6 L D (6.3-8.2) g/dL Albumin 1.8 L (3.9-5) g/dL Crossmatch
[2018-03-05] MEDS: MOTRIN PO PRN ×2 (10:56→21:30)
[2018-03-06] MEDS: NORCO 5/325 PO PRN (00:55)
--- NOTE | 2018-03-06 06:00 | Discharge Summary ---
Providers - Providers Date of Admission: 02/27/18 13:40 Date of discharge: 03/06/18 (pt desires d/c) Attending physician: CHING ROSADO 03/03/18 19:23 Consult to [employer] [CONS] Routine Reason For Exam: Primary care physician: CHING ROSADO Hospitalization Reason for admission: other ( abdominal pain) Delivery: Procedure: primary low transverse (Severe PreE; failed IOL; remote from delivery ) Episiotomy: none Laceration: none Incision: normal, dry, intact Other procedures: none complications: transfusion (X 3 units) Discharge diagnosis: delivery [place] baby: male Hospital course: Pt presented with c/o abdominal pain; DX: with PreE and anemia Uncomplicated section Pt c/o slight VERGARA this AM Gets relief with Motrin BP 130-114/80-70 afebrile. FF below umb Lochia scant Incision D&I Pt is asymptomatic anemia. Doing well s/p c/ s; PreE. P: d/c today with instructions RTO Sunday for BP check Appt made @ 0900 in [place] office Pt is aware and agrees with time and date. RX provided at d/c. Will consult with Condition at discharge: Good Disposition: DC- TO HOME OR SELFCARE - Discharge Diagnoses (1) Pre-eclampsia Status: Acute Qualifiers: Trimester: third trimester Qualified Code(s): O14.93 - Unspecified pre- eclampsia, third trimester Comment: Call with VERGARA, blured vision, chest pain Appt made for Sunday in office for BP check (2) delivery delivered Status: Acute Comment: wound care discussed Postop visit in one week (3) Anemia Status: Chronic Qualifiers: Anemia type: iron deficiency Iron deficiency anemia type: inadequate dietary iron intake Qualified Code(s): D50.8 - Other iron deficiency anemias Comment: strongly encouraged to increase iron rich foods in her diet; continue PNV (4) Hypokalemia Status: Acute Comment: increase po calcium Plan - Discharge Medications Prescriptions: Ferrous Sulfate [Feosol 325 MG tab] 325 mg PO BID #60 tablet Ibuprofen [Motrin 800 MG tab] 800 mg PO Q6H PRN #30 tablet PRN Reason: Pain oxyCODONE /ACETAMINOPHEN [Percocet 5/325 mg] 1 - 2 tab PO Q4H PRN #30 tablet PRN Reason: Pain, Moderate - Provider Discharge Summary Activity: routine, no sex for 6 weeks, no heavy lifting 4 weeks, no strenuous exercise Diet: other (limit salt intake) Instructions: routine Additional instructions: [] Smoking cessation referral if applicable(refer to patient education folder for contact #) [] Refer to [facility] Booklet Call your doctor immediately for: * Fever > 100.5 * Heavy vaginal bleeding ( >1 pad per hour) * Severe persistent headache * Shortness of breath * Reddened, hot, painful area to leg or breast * Drainage or odor from incision. * Keep incision clean and dry at all times and follow doctor's instructions regarding bathing/showering - Follow up plan Follow up: CHING ROSADO MD [Primary Care Provider] - 03/08/18 9:00 am (Congraatulations! Please call [phone] to schedule your postoperative visit and your son's circumcision in 1 week. Bring the EMLA cream with you to his visit. Do NOT use at home. Please keep you appointment for Sunday,03-08-18, for your blood pressure check 9: 00am in the [place] office. Call with any headaches not relieved with Tylenol, blurred vision, chest pain. Take medications as prescribed. Call with any concerns. )
[2018-03-06] MEDS: MOTRIN PO PRN (11:00)
[2018-03-06 12:48] VITALS: BP 144/78
== END 2018-03-06 12:10 | disposition home or self-care (01) | DRG 765 ==
LOC: TRG 16:13 → LD 19:44 → OBSVTOIN 02-27 13:40 → OB 03-03 21:14
PROVIDERS: ADMIT Obstetrics & Gynecology; ATTEND Obstetrics & Gynecology
PROC: 10D00Z1 Extraction of Products of Conception, Low, Open Approach (ICD-10-PCS; principal; 2018-03-03)
PROC: 30233N1 Transfusion of Nonautologous Red Blood Cells into Peripheral Vein, Percutaneous Approach (ICD-10-PCS; 2018-03-04)
PROC: 3E0234Z Introduction of Serum, Toxoid and Vaccine into Muscle, Percutaneous Approach (ICD-10-PCS; 2018-03-05)
DX: O14.14 Severe pre-eclampsia complicating childbirth (principal); N10 Acute pyelonephritis; O75.3 Other infection during labor; O99.42 Diseases of the circulatory system complicating childbirth; O61.9 Failed induction of labor, unspecified; D50.8 Other iron deficiency anemias; Z37.0 Single live birth; O62.9 Abnormality of forces of labor, unspecified; R00.0 Tachycardia, unspecified; O99.02 Anemia complicating childbirth; O14.94 Unspecified pre-eclampsia, complicating childbirth; O12.04 Gestational edema, complicating childbirth; Z3A.34 34 weeks gestation of pregnancy; D50.9 Iron deficiency anemia, unspecified; Z23 Encounter for immunization; E87.6 Hypokalemia; E83.41 Hypermagnesemia
CPT/HCPCS: 36415; 71045; 76700; 76816; 76819; 80048; 80053; 80074; 80307; 80320; 81001; 82150; 82565; 83615; 83690; 83735; 84156; 84450; 84460; 84550; 85007; 85014; 85018; 85025; 85027; 86592; 86850; 86900; 86901; 86920; 87086; 87116; 88307; 90471; 90715; 93005; 93010; 99211; C9113; G0378; G0463; G0480; J0595; J0610; J0690; J0696; J0702; J2270; J2370; J2405; J2590; J2765; J3010; J3475; J7040; J7050; J7120; P9016; Q0169

== ENCOUNTER 2018-03-12 11:10 | Day surgery (SDC) | payer BC, OTHER ==
[2018-03-12 11:29] LABS: Basophils % (Auto) 0.3 % (0.0-1.8); Eosinophils # (Auto) 0.1 K/mm3 (0.0-0.4); Eosinophils % (Auto) 0.6 % (0.0-4.3); Hematocrit 23.8 % (30.3-42.9); Hemoglobin 7.4 gm/dl (10.1-14.3); Lymphocytes # (Auto) 2.1 K/mm3 (1.2-5.4); Lymphocytes % (Auto) 25.6 % (13.4-35.0); Mean Corpuscular HGB Conc 31 % (30-34); Mean Corpuscular Hemoglobin 27 pg (28-32); Mean Corpuscular Volume 86 fl (79-97); Monocytes # (Auto) 0.8 K/mm3 (0.0-0.8); Monocytes % (Auto) 9.2 % (0.0-7.3); Platelet Count 357 K/mm3 (140-440); Red Blood Count 2.75 M/mm3 (3.65-5.03); Red Cell Distribution Width 19.7 % (13.2-15.2)
[2018-03-12] MEDS ORDERED: NACL 0.9% 1000 ML 1,000 ML ONE (11:58)
[2018-03-12 13:47] VITALS: BP 132/82
== END 2018-03-12 11:11 | disposition home or self-care (01) ==
LOC: OR 11:10
PROVIDERS: ATTEND Anesthesiology Pain Medicine
DX: R51 Headache (principal)
CPT/HCPCS: 36415; 62273; 85025; J7030